=== PATIENT | female | born 1940 | race Caucasian/White ===

== ENCOUNTER 2016-08-29 11:00 | Inpatient (IN) | payer MEDICARE, OTHER ==
[~2016-08-29] VITALS: Ht 165.1 cm; Wt 79.0 kg
--- NOTE | ~2016-08-29 | ENPV ---
Vascular Lower Extremities DVT Study Procedure Demographics Patient Name IZABEL PINTO Date of Study 08/31/2016 K Patient Number [id number] Gender Female Date of 1940 Age 76 Visit Number [id number] Height Accession Number [id number] Weight Room Number G3441 BSA BMI Referring Jose Garcia MD Interpreting Chan Lima MD Physician Lefty Garcia MD Physician Nir Figueroa Physician Ordering Physician Nir Figueroa Stock Shaper Privacy Analyst Yadiel Nguyen [facility] Arin Montez Conclusions Summary No evidence of deep vein thrombosis or superficial thrombophlebitis in the right lower extremity . No evidence of deep vein thrombosis or superficial thrombophlebitis in the left lower extremity . Unable to exclude small calf thrombi in the left calf veins. Procedure Type of Study: Veins:Lower Extremities DVT Study, Venous Duplex Lower Extremity Bilateral. Indications for Study:Pain. Appropriate Use Criteria:8 Patient Status:Routine. Study Location:Inpatient Portable. Technical Quality:Good visualization. Velocities are measured in cm/s ; Diameters are measured in cm Right Lower Extremities DVT Study Measurements Right 2D and Doppler Measurements + + + + +------+------+ + !Location !Visualized!Compressibility!Thrombosis!Signal!Reflux!Reflux ! ! ! ! ! ! ! !(sec) ! + + + + +------+------+ + !GSV Thigh !Yes !Yes !None !Phasic! ! ! + + + + +------+------+ + !Common !Yes !Yes !None !Phasic! ! ! !Femoral ! ! ! ! ! ! ! + + + + +------+------+ + !Prox !Yes !Yes !None !Phasic! ! ! !Femoral ! ! ! ! ! ! ! + + + + +------+------+ + !Mid Femoral!Yes !Yes !None !Phasic! ! ! + + + + +------+------+ + !Dist !Yes !Yes !None !Phasic! ! ! !Femoral ! ! ! ! ! ! ! + + + + +------+------+ + !Popliteal !Yes !Yes !None !Phasic! ! ! + + + + +------+------+ + !PTV !Yes !Yes !None !Phasic! ! ! + + + + +------+------+ + !Peroneal !Yes !Yes !None !Phasic! ! ! + + + + +------+------+ + Left Lower Extremities DVT Study Measurements Left 2D and Doppler Measurements + + + + +------+------+ + !Location !Visualized!Compressibility!Thrombosis!Signal!Reflux!Reflux ! ! ! ! ! ! ! !(sec) ! + + + + +------+------+ + !GSV Thigh !Yes !Yes !None !Phasic! ! ! + + + + +------+------+ + !Common !Yes !Yes !None !Phasic! ! ! !Femoral ! ! ! ! ! ! ! + + + + +------+------+ + !Prox !Yes !Yes !None !Phasic! ! ! !Femoral ! ! ! ! ! ! ! + + + + +------+------+ + !Mid Femoral!Yes !Yes !None !Phasic! ! ! + + + + +------+------+ + !Dist !Yes !Yes !None !Phasic! ! ! !Femoral ! ! ! ! ! ! ! + + + + +------+------+ + !Popliteal !Yes !Yes !None !Phasic! ! ! + + + + +------+------+ + !PTV !Yes !Yes !None !Phasic! ! ! + + + + +------+------+ + !Peroneal !Yes !Yes !None !Phasic! ! ! + + + + +------+------+ + Signature dtt: TYLOR MEHTA: 08/31/16 1535 Physician Self Edit
--- NOTE | ~2016-08-29 | HP ---
[facility] 76 Y [address] ROOM: [place] [address] LOCATION: [facility] ADMIT DATE: 08/29/2016 History & Physical DISCHARGE DATE: 09/12/2016 FAMILY PHYSICIAN: Hayden Garcia MD ATTENDING PHYSICIAN: Oswaldo Olea DATE OF SERVICE: PRIMARY DIAGNOSIS: Left hip fracture status post open reduction and internal fixation of left hip. SECONDARY DIAGNOSIS: 1. Chronic congestive heart failure. 2. Diabetes mellitus type 2. 3. Chronic respiratory failure. 4. Chronic obstructive pulmonary disease. 5. Obstructive sleep apnea. 6. Pain management. 7. Dementia. 8. Hypothyroidism. 9. Depression. 10. PAF. HISTORY: This is a 76-year-old female who underwent an open reduction and internal fixation of the left hip on 08/25/2016 without complications. She had a benign postoperative course. She and her family decided to transfer her to a [facility] facility for further nursing care and physical therapy. HOSPITAL COURSE: The patient was transferred to transitional care unit on 08/29/2016. She remained hemodynamically stable and neurovascularly intact on her entire hospital course. She remained on postoperative deep venous thrombosis prophylaxis which consisted of Xarelto 20 mg, early mobilization, and pneumatic compression devices. She received daily physical therapy for gait training, transfer training, range of motion and quadriceps isometric exercises and did progress well in physical therapy. The nursing staff also provided daily dressing changes when needed and monitored her wound periodically. On her day of discharge on 09/12/2016, the incision at the hip was healing well and showed no signs of infection or necrosis. VITALS: Refer to inpatient nurse's notes. [facility] 76 Y [address] ROOM: [place] [address] LOCATION: [facility] ADMIT DATE: 08/29/2016 History & Physical DISCHARGE DATE: 09/12/2016 FAMILY PHYSICIAN: Hayden Garcia MD ATTENDING PHYSICIAN: Oswaldo Olea REVIEW OF SYSTEMS: Refer to inpatient nurse's notes. DISPOSITION: [facility]. DISCHARGE INSTRUCTIONS: Discharge diet was ADA 2000 kilocalories. Discharge activity, she is to be 50% weightbearing with left lower extremity with range of motion and quadriceps isometric exercises as instructed. She was to keep her operative extremity elevated at least 90% of the day. There were to be no dressing changes. She was to notify Dr. Olea immediately, if she experience any increased pain, fevers, chills, erythema or drainage. DISCHARGE MEDICATIONS: 1. Xarelto 20 mg 1 tablet p.o. daily for 60 days for postoperative DVT prophylaxis. 2. [place] 5/325 mg 1-2 tablets p.o. every 4 hours p.r.n. for pain. 3. Diazepam 5 mg 1/2 tablet p.o. every 6 hours p.r.n. for muscle spasms. 4. Percocet 5/325 mg 1 tablet p.o. every 3 hours p.r.n. for pain. 5. She has been instructed to continue all her other preadmission medications as instructed by her Internal Medicine doctor. EDMUNDO MO PA-C FOR MD MARVIN RONQUILLO/josie /[id number] D: [id number] T: [id number] HISTORY & PHYSICAL
--- NOTE | ~2016-08-29 | DS ---
[facility] 76 [facility] [address] ROOM: [place] [address] [address]: [facility] ADMIT DATE: 08/29/2016 Discharge Summary DISCHARGE DATE: 09/12/2016 FAMILY PHYSICIAN: Hayden Garcia MD ATTENDING PHYSICIAN: Oswaldo Olea PRIMARY DIAGNOSIS: Left hip fracture status post open reduction and internal fixation of left hip. SECONDARY DIAGNOSES: 1. Chronic congestive heart failure. 2. Diabetes mellitus type 2. 3. Chronic respiratory failure. 4. Chronic obstructive pulmonary disease. 5. Obstructive sleep apnea. 6. Pain management. 7. Dementia. 8. Hypothyroidism. 9. Depression. 10. PAF. HISTORY: This is a 76-year-old female, who underwent an open reduction and internal fixation of the left hip on 08/25/2016 without complications. She had a benign postoperative course. She and her family decided to transfer her to a half-way facility for further nursing care and physical therapy. HOSPITAL COURSE: The patient was transferred to transitional care unit on 08/29/2016. She remained hemodynamically stable and neurovascularly intact on her entire hospital course. She remained on postoperative deep venous thrombosis prophylaxis which consisted of Xarelto 20 mg, early mobilization, and pneumatic compression devices. She received daily physical therapy for gait training, transfer training, range of motion and quadriceps isometric exercises and did progress well in physical therapy. The nursing staff also provided daily dressing changes when needed and monitored her wound periodically. On her day of discharge on 09/12/2016, the incision at the hip was healing well and showed no signs of infection or skin necrosis. DISPOSITION: [facility]. DISCHARGE INSTRUCTIONS: Discharge diet was ADA 2000 kilocalories. Discharge activity, she is to be 50% weightbearing with left lower extremity with range of motion and quadriceps isometric exercises as instructed. She was to keep her operative extremity elevated at least 90% of the day. There were to be no dressing changes. She was to notify Dr. Olea immediately if she experience PATIENT'S NAME: IZABEL PINTO [facility] AGE: 76 Y [address] ROOM: [place] [address] LOCATION: [facility] ADMIT DATE: 08/29/2016 Discharge Summary DISCHARGE DATE: 09/12/2016 FAMILY PHYSICIAN: Hayden Garcia MD ATTENDING PHYSICIAN: Oswaldo Olea any increased pain, fevers, chills, erythema or drainage. DISCHARGE MEDICATIONS: 1. Xarelto 20 mg 1 tablet p.o. for 60 days for postoperative DVT prophylaxis. 2. [place] 5/325 mg 1-2 tablets p.o. every 4 hours p.r.n. for pain. 3. Diazepam 5 mg 1/2 tablet p.o. every 6 hours p.r.n. for muscle spasms. 4. Percocet 5/325 mg 1 tablet p.o. every 3 hours p.r.n. for pain. 5. She has been instructed to continue all her other preadmission medications as instructed by her Internal Medicine doctor. FOLLOWUP: Followup appointment is to be with Dr. Olea's office 2 weeks after discharge from [facility] for her initial postoperative evaluation. EDMUNDO MO PA-C FOR MD DIRK RONQUILLOW/modl /[id number] d: 09/20/16 0503 t: 09/20/16 0911, DISCHARGE SUMMARY
[~2016-08-29 11:00] MED LIST: ALDACTONE25 MG PO; ASPIRIN LO-DOSE81 MG PO; BUPROPION HCL150 M1 PO; COLACE100 MG PO; DUONEB INH; GLUCOPHAGE500 MG PO; LEVOTHROID (S150 MCG PO; MAG-OX-400(241400 MG PO; NEURONTIN600 MG PO; POTASSIUM CHLO10 MEQ PO; RYTHMOL150 MG PO; TYLENOL325 MG PO; ZOLOFT100 MG PO
--- NOTE | 2016-08-29 16:54 | NUR ---
D: Nursing Admission Summary I: Nursing interventions provided to support the patient's individual plan of care R: MOBILITY-- 2 assist pivot transfer. 50% weight bearing to left leg. NUTRITION-- Diabetic diet. SKIN/INCISIONS/WOUNDS-- Mepilex x2 to left hip SELF CARES-- Needs assistance with ADL's BOWEL/BLADDER-- Incontinent at times. Has been continent of bowel and bladder today RESPIRATORY-- Oxygen at 2 liters. Oxygen to keep sats 90% or greater PAIN-- Has PRN medication. [place] given at 1500. PSYCHOSOCIAL-- Daughter Ernestine is POA COGNITION-- Alert and oriented to self. Gets confused easily and is very forgetful. Daughter states she has been confused at home. NEED FOR BED/MOVEMENT ALARMS. Needs alarms at all times. Do not leave patient alone on commode. High fall risk DISMISSAL PLANS: To be determined Other: [facility]att PONCE&HS P: Current plan of care reviewed and updated Summer Gan RN 08/29/16
--- NOTE | 2016-08-30 02:26 | NUR ---
Significant Event: Alert & oriented to person,place,date. But will say some off the wall things. VSS. I found o2 off @ 1945 & she was 90% on room air. I rechecked later & she was asleep in bed. o2 was on a 1 L & sao2 was 94%. She is a 2 heavy assist with gb/walker and is to only bear 50% wt on lt side. Lt hip & femur dressing c/d/i. She wears YANIV hose. ICE to lt hip. ACHS sliding scale /blood sugars. Follow up:
--- NOTE | 2016-08-30 13:36 | NUR ---
TCU-Social Assessment & History Marital status: and Children/Grandchildren: 2 daughters: Ernestine Lara is from [place], [place] and has four boys per patient. Caty Guajardo resides in [place], [place]. DPOA: On file Name of DPOA: Ernestine Lara Patient is a full code Admitted from: Acute Care Admission date to TCU: 08/29/16 Reason for admission: Continued OT and PT with O2 as needed following a L) hip fx. Patient/family received resident rights upon admission: Yes, on acute Prior level of functioning: Was living independently and had housekeeping per patient every other week. Prior living situation: Patient lived alone in an apartment under a motel in [place], [place]. Is a ground level apartment and has three steps to the entrance per daughter. Financial resources: Medicare, Supplement. Pratik Sinha states that patient has around $13,000 in savings and will assist in paying patient's bills. Monthly rent for patient's apartment is $575 including utilities. SW discussed with daughter Medicare and Medicaid criteria. Resources used/available: Housekeeping every other week. Patient has a FWW, home O2, and a cane but states that she does not use them. Patient has refused [employer] in the past per Ernestine. Family support available: Yes Understands nature of health condition: Confused at times Recognizes impact of health condition on lifestyle: Patient states she would like to live in [place] when d/c from the hospital. Occupation/Vocation/Education: Previously worked in [employer] before working for [employer] per patient. Behavior/Emotional needs: Pleasant and cooperative Legal concerns: N/A Spiritual: [employer] in [place], [place] Discharge goal: Pratik Sinha wants patient to d/c to a SNF in [place], [place]. Patient discussed wanting to stay in [place] as well. SW encouraged pratik Sinha to tour all four SNF in [place] and give us her top two choices. Listing of SNF left at bedside for daughter. Activities: Patient will be encouraged to participate in "ala carte" activities offered during her short stay on TCU. A current calendar of events is posted at bedside. Patient states that she wants to move to [place] so she can enjoy shopping and going out to eat.
--- NOTE | 2016-08-30 16:58 | NUR ---
Significant Event: 2 ASSIST TRANSFER USING GAIT BELT AND WALKER. 50% WEIGHT BEARING TO LEFT LOWER EXTREMITY. 1 NORCO GIVEN X1 THIS SHIFT. INCONTINENT OF LARGE LOOSE STOOL. 1100 ACCUCHECK 223 REQUIRING 2 UNITS SSI. PLEASANT AND COOPERATIVE WITH CARES. Follow up:
--- NOTE | 2016-08-31 02:34 | NUR ---
Significant Event: oriented to person, place, time. However she is still somewhat confused. She searches for words. She is 2 assist/gb/walker He is 50% wt bearing. o2 is off. Used incentive spirometer to 1000. VSS. ACHS blood sugars. SHe had a loose stool on days so, miralax held. Wears YANIV hose. She is on a high/low bed. She needs help with order meals. Denies pain. 2- lt hip dressing have mepilex on them & are c/d/i. Follow up:
--- NOTE | 2016-08-31 17:10 | NUR ---
Significant Event: 2 ASSIST WITH GAIT BELT AND WALKER TO PIVOT TRANSFER. ALARMS AT ALL TIMES. INCONTINENT OF LARGE BOWEL MOVEMENT. ACCUCHECK AT 0700 163 AND AT 1100 241. CONTINUES TO BE CONFUSED AND SLOW TO RESPOND. PLEASANT AND COOPERATIVE WITH CARES. Follow up:
--- NOTE | 2016-09-01 02:20 | NUR ---
Significant Event:Goes by Dot. Confused. Word searching at times. 2 assist HEAVY pivot.ACHS accuchecks, no sliding scale required at HS. VSS on 1L oxygen per Nasal Cannula. Mepilex to L) hip intact. 1 [place] @ 2153 for pain; relief noted. Loose stools X2 this shift. Turn and check for incontinence Q2h. Call light within rewch. Follow up:
--- NOTE | 2016-09-01 17:15 | NUR ---
Significant Event:ALERT AND COOPERATIVE, CONFUSED ON PERSON, AND PLACE, FOLLOWS COMMANDS, USES CALL LIGHT APPROPRIATELY, 2 ASSIST TRANSFER TO BEDSIDE COMMODE, PIVOT TRANSFER, PT/OT SERVICES. BLOOD SUGARS AC/HS WITH SLIDING SCALE, YANIV HOSE ON, MEPLILEX DRESSIGN TO L)HIP X 2, OXYGEN 1 LITER AT ALL TIMES, FOOT PUMPS ON AND ALARMS ON AT ALL TIMES. Follow up:
--- NOTE | 2016-09-02 04:09 | NUR ---
Significant Event: Goes by Dot. ALert, confused at times. Follows commands well. uses call light. 2 Assit, pivot transfer. Gait belt and walker. Blood sugars achs with sliding scale. HS blood sugar 188. Took O2 off everytime I put it back on, should be 1L at all times. alarms on at all times. Follow up:
--- NOTE | 2016-09-02 11:11 | NUR ---
call returned to daughter Caty in [place] [phone]. Caty requested update about her mom. Informed Caty that her mom would be going to a SNF [place] for continued OT/PT/ST under medicare. Her sister Ernestine and patient request [place] and Caty in agreement with the plan. Referrals made to [facility] and [facility] today per MAHESH Sinha's request. Information faxed to these two SNF's. Ernestine updated as well. Ernestine is the primary contact so encouraged Caty to get updates from Ernestine in [place].
--- NOTE | 2016-09-02 16:56 | NUR ---
Significant Event: ALERT, CONFUSED TO PLACE/TIME, TALKS ABOUT TALKING TO PEOPLE THAT ARE , L)HIP MEPILEX DRY AND INTACT, SHOWER THIS AM, BLOOD SUGARS AC/HS, NORCO 1 TAB GIVEN FOR PAIN LAST AT 1400. 1 LITER OXYGEN DURING THE DAY, WEANED OFF TO ROOM AIR AT 1400 SATS 93%. TRYS TO GET OUT OF CHAIR WITHOUT USIGN CALL LIGHT FOR HELP, MONITOR CLOSELY. DO NOT LEAVE ON COMMODE IN ROOM BY HERSELF. Follow up:
--- NOTE | 2016-09-03 02:04 | NUR ---
Significant Event: Patient is alert and oriented to self only. Follows commands and is pleasant and cooperative with cares. Transfers by pivot with two assist with gait belt and walker. Accucheck AC/HS with sliding scale insulin. Alarms on at all times. Dressing to left hip dry and intact. Follow up:
--- NOTE | 2016-09-03 15:38 | NUR ---
Significant Event: PIVOT TRANSFERS WITH ASSIST OF 2 USING GAIT BELT AND WALKER. CAN BE IMPULSIVE AT TIMES ALARMS AT ALL TIMES. LEFT HIP UPPER DRESSING REINFORCED UPPER EDGE WAS LOOSE. 1000MG TYLENOL GIVEN X1 THIS SHIFT FOR LEFT HIP PAIN. DAUGHTER BROUGHT NEW CLOTHES. 2 UNITS SSI GIVEN AT NOON FOR AT 234 BLOOD SUGAR. PLEASANT AND COOPERATIVE WITH CARES. Follow up:
--- NOTE | 2016-09-04 03:46 | NUR ---
Significant Event: Pt oriented to self. Mepilex to left hip dry and intact. CSM WNL. 1 norco given with HS meds. Did not need insulin coverage. Rested well all shift, no attempts to get up by self. Follow up:
--- NOTE | 2016-09-04 17:10 | NUR ---
Significant Event: PIVOT TRANSFERS WITH 2 ASSIST USING GAIT BELT AND WALKER. PRN TYLENOL GIVEN X1 THIS SHIFT. BOTH DAUGHTERS HERE THIS MORNING AND WERE ARGUING IN PATIENTS ROOM ASKED THE DAUGHTERS TO GO ELSEWHERE POSSIBLY LEAVE IF THEY WERE GOING TO YELL AT EACH OTHER. DAUGHTER ULISSES AT BEDSIDE THROUGHOUT THE DAY AND PATIENT'S BROTHER BUD AND AT BEDSIDE ALSO. POA REFUSES TO COMMUNICATE WITH OTHER FAMILY. 1100 ACCUCHECK WAS 219 WITH 2 UNITS SSI GIVEN ORDERED. PLEASANT AND COOPERATIVE WITH CARES. Follow up:
--- NOTE | 2016-09-05 03:40 | NUR ---
Significant Event: Patient disoriented to time. Transferred with 2 assist, pivot. Mepilex x2 to left hip clean, dry and intact. CSM WNL. Vital signs stable, on room air. 1 tab norco given with HS meds. No coverage needed for accucheck. Pleasant/cooperative with cares Follow up: alarms on
--- NOTE | 2016-09-05 14:02 | NUR ---
Call placed to [facility] and spoke with Rafaela HOPPER who is reviewing information faxed to her. They had 2 people over the weekend, so should have a bed ready by of this week. Rafaela will have their nursing personnel review the records and let me know when they can come and assess patient.
--- NOTE | 2016-09-05 14:25 | NUR ---
Significant Event: Patient alert but confused at times. Needs alarms. 2 assist. 50% weight bearing until October 23. Mepilex x2 to left hip and intact. Taking [place] for pain. Accuchecks with s/s insulin. Follow up:
--- NOTE | 2016-09-06 03:32 | NUR ---
Significant Event: Patient alert and oriented x3 but intermittent bouts of confusion with reorientation needed. Mepilex x2 clean, dry and intact to left hip. CSM WNL. Vital signs stable, on room air. One norco given with hs meds. Slept well throughout the night. Transferred with 2 assist and walker. No coverage needed for accucheck. Pleasant and cooperative with cares Follow up: alarms on
--- NOTE | 2016-09-06 14:09 | NUR ---
Significant Event: ALERT- ORIENT TO PERSON AND PLACE BUT BELIEVES CAR IS OUTSIDE AND THOUGHT SHE DROVE HERSELF TO HOSPITAL- REORIENTATES EASILY, PT/OT/ST SERVICES, PLEASANT AND COOPERATIVE, ALARMS ON AT ALL TIMES. BEDSIDE COMMODE 2 ASSIST PIVOT TRANSFER- 50% WT BEARING TO L)LEG, [place] REMOVED TODAY- BENZOIN AND STERISTRIPS APPLIED TO L)INCISIONS. BLOOD SUGARS AC/HS, 91% ROOM AIR, DENIES PAIN. [facility] HERE TO ASSESS PT TODAY. Follow up:
--- NOTE | 2016-09-07 03:13 | NUR ---
Significant Event: Patient has moments of confusion. Was able to tell me where she was and the date. [place] given with hs meds. PRN colace also given. Vitals stable on room air. Steristrips intact to left hip, incision edges approximated. CSM WNL. Continent. No coverage needed for accucheck. Kicks off foot pumps after attempts to place back on so left off. Bed alarm on Follow up: no bm since the
--- NOTE | 2016-09-07 10:04 | NUR ---
[facility] have [facility] bed available Monday (09/12) at 1100. Patient and daughter in agreement to plan.
--- NOTE | 2016-09-07 16:50 | NUR ---
Significant Event: Follow up: up to commode, up to chair, with two mod assist, gait belt and walker, patient leans backwards and needs cuing to lean forward. Needs reminders to do 50% wt bearing to left leg. Patient in impulsive and sets off bed and chair alarms several times today. At aprox 1630 patient is setting off chair alarm, ready to go to kitchen to peel potatoes. Given norco last at 1420.
--- NOTE | 2016-09-07 23:18 | NUR ---
Significant Event:Alert to self. Confused to surroundings at times. 2 assist pivot for transfers. Left hip well approximated. Steri strips loose and coming off. 1L/O2 for low Saturation at HS.ACHS accuchecks; no insulin required this shift. Impulsive. Alarms at all times. 1 [place] @ 2100 for discomfort. Call light within reach. Mats down at bedside. Bed in low position. Follow up:
--- NOTE | 2016-09-08 20:01 | NUR ---
Significant Event:ALERT ORIENTATED X 3, PERIODS OF CONFUSION, IMPULSIVE TRYS TO GET UP AND WALK- FORGETS HIP IS BROKEN, FORGETS TO USE CALL LIGHT, 2 ASSIST PIVOT TRANSFER WITH WALKER/GB, 50% WT BEARING TO L)LOWER EXTREMITY, YANIV HOSE ON, EATS WELL, BLOOD SUGARS AC/HS-ORAL GLUCOPHAGE AND SLIDING SCALE, NORCO GIVEN FOR PAIN, RESTLESS IN AFTN WANTING TO GO GET HER CAR, JUST WANTING TO GO. PLAN TO GO TO [facility] ON MONDAY. Follow up:
--- NOTE | 2016-09-09 04:11 | NUR ---
Significant Event: Forgetful of own limitations. Attempts to get out of bed w/out using call light. High/low bed w/pads used. No pain meds given this shift no verbal or nonverbal c/o discomfort noted. L) hip has steri-strips in place. Two asssit pivot transfer w/gait belt and walker. Patient likes to be called "Dot." Patient is easily redirected. Follow up:
--- NOTE | 2016-09-10 03:33 | NUR ---
Significant Event: Pleasantly confused. Redirects easily. Two assist transfer pivot. Patient makes needs known. High/low bed and fall precautions in place. Vital signs are stable. No c/o discomfort voiced. Attempts to get up on own. Requests to go to recliner from bed. Chair alarm activated and is working properly. Patient is asleep in recliner. Follow up:
--- NOTE | 2016-09-10 15:43 | NUR ---
Significant Event: Patient is alert. Can be oriented at times and also confused at times. Room air. No IV access. Hi-Lo Bed. Bed and chair alarms at all times. Up to commode with 2 assist, 50% weight bearing to left leg for 2 months. Uses call light appropriately. [place] given X 1 at 1408. ACHS accuchecks - 134 and 197 with no correction needed. Pleasant and cooperative with cares. Follow up:
--- NOTE | 2016-09-11 06:05 | NUR ---
Significant Event: PATIENT IS INTERMITTENTLY CONFUSED BUT PLEASANT. SLEPT WELL LAST NIGHT. HAS LOW BED. DOES NOT CALL APPROPRIATELY. ALARMS IN PLACE. MOT[facility] ON MONDAY. Follow up:
--- NOTE | 2016-09-11 16:17 | NUR ---
Significant Event: Pt is alert, oriented to self. Cooperative with cares. Transfers to commode with 2 assist, gait belt, walker. C/o leg pain this afternoon gave prn pain medication with relief noted. Last BM 09/08; will offer MOM. Accuchecks 123, 151. Follow up:
--- NOTE | 2016-09-12 03:37 | NUR ---
Significant Event: Pt alert to self, sometimes confused. cooperative with cares. 2 assist, gait belt walker. C/O 02/16 leg pain, 2 norco given at 0230. alarms [address]. Mother [facility]ol 09/12/16 Follow up:
--- NOTE | 2016-09-12 04:03 | NUR ---
D: Nursing Discharge Summary From 08/29/16 to 09/12/16 I: Nursing interventions provided to support the patient's individual plan of care R: MOBILITY-- 2A pivot. Gait belt, walker NUTRITION-- Diabetic diet SKIN/INCISIONS/WOUNDS-- left hip surgical incision BOWEL/BLADDER-- Sometimes incontienent of bowel and bladder RESPIRATORY-- 1L oxygen for o2 stats below 90 PAIN-- Speaks up when in pain. Analgesics COGNITION-- sometimes confused. SPECIAL NEEDS-- Low bed, bed alarms. BLEEDING-- none SENSORY IMPAIRMENTS/DENTAL NEEDS: TEACHING NEEDS-- reinforce use of call light and 50% weight bering INFECTION CONCERNS: RISK FOR ELOPEMENT: none NEED FOR BED/MOVEMENT ALARM: Yes, confused at times, forgets to call DISMISSAL PLANS: [facility] Other: P: Current plan of care reviewed and updated 09/12/16 chaitanya BURRIS
--- NOTE | 2016-09-12 16:53 | NUR ---
Patient discharged this am at aprox 1000 to [facility]. Patient very excited to go. Seems to be clear in her mind this am. Report given by Lázaro Bueno RN. discharged to long term personel via van.
== END 2016-09-12 10:21 | DRG 560 ==
LOC: GSNF 11:00
PROVIDERS: ADMIT Orthopaedic Surgery
PROC: F07Z9ZZ Gait Training/Functional Ambulation Treatment (ICD-10-PCS; principal; 2016-08-29)
PROC: F08Z4ZZ Home Management Treatment (ICD-10-PCS; principal; 2016-08-29)
PROC: F06Z6ZZ Communicative/Cognitive Integration Skills Treatment (ICD-10-PCS; 2016-09-02)
DX: Z47.1 Aftercare following joint replacement surgery (principal); I50.32 Chronic diastolic (congestive) heart failure; J96.10 Chronic respiratory failure, unspecified whether with hypoxia or hypercapnia; J44.9 Chronic obstructive pulmonary disease, unspecified; F03.90 Unspecified dementia, unspecified severity, without behavioral disturbance, psychotic disturbance, mood disturbance, and anxiety; S72.002D Fracture of unspecified part of neck of left femur, subsequent encounter for closed fracture with routine healing; I48.0 Paroxysmal atrial fibrillation; G47.33 Obstructive sleep apnea (adult) (pediatric); E03.9 Hypothyroidism, unspecified; F32.9 Major depressive disorder, single episode, unspecified; E11.9 Type 2 diabetes mellitus without complications; Z79.01 Long term (current) use of anticoagulants; W19.XXXD Unspecified fall, subsequent encounter

== ENCOUNTER 2016-11-13 20:57 | Emergency (ER) | payer MEDICARE, OTHER ==
--- NOTE | ~2016-11-13 | ER ---
PATIENT'S NAME: IZABEL PINTO [facility] AGE: 76 Y [address] ROOM: [place] [address] LOCATION: [facility] ADMIT DATE: 11/13/2016 ER/Outpatient Report DISCHARGE DATE: 11/13/2016 FAMILY PHYSICIAN: Richard Garcia MD ATTENDING PHYSICIAN: Makenna Pritchett HISTORY OF PRESENT ILLNESS: This is a 76-year-old female who presents today with a fall off the toilet and then some left hip pain. She reports that she had surgery 2 months ago. She had ORIF for a left hip fracture. She states that she was able to ambulate when EMS got there. She reported her pain was a 6/10 and it is now 0/10 after they gave 50 mcg of fentanyl. The patient is on Xarelto as well, so she has extensive bruising and she says that it is mildly painful, but otherwise she feels okay. She denies any numbness, tingling or any other complaints of the leg besides pain which has now gone. PAST MEDICAL HISTORY: Includes dementia, hypothyroidism, atrial fibrillation on anticoagulation, CHF, flu-clppazn-wrvdlqbsq diabetes, COPD, CVA, asthma and osteoarthritis. PAST SURGICAL HISTORY: Left hip fracture ORIF. SOCIAL HISTORY: She does not smoke, drink or use any drugs. MEDICATIONS: Please see med list. ALLERGIES: PLEASE SEE MED LIST. REVIEW OF SYSTEMS: Reviewed by me and negative with the exception of those discussed in the HPI. PHYSICAL EXAMINATION: GENERAL: The patient is 5 feet and 5 inches. She weighs 72.9 kilos, blood pressure 131/64, heart rate 85, respiratory rate 16, temperature 97.9, and saturations are 96%. GENERAL: The patient is in no acute distress. She is alert and interactive. She is able to speak to me appropriately. She is able to give some history as well. EXTREMITIES: On the lower extremities, there is no shortening or rotation. She has no pelvic tenderness and she has no hip tenderness either. There is a pretty extensive swelling and bruising of her left lateral hip area and leg PATIENT'S NAME: IZABEL PINTO [facility] AGE: 76 Y [address] ROOM: [place] [address] LOCATION: [facility] ADMIT DATE: 11/13/2016 ER/Outpatient Report DISCHARGE DATE: 11/13/2016 FAMILY PHYSICIAN: Richard Garcia MD ATTENDING PHYSICIAN: Makenna Pritchett down the lateral thigh, but the skin is warm and dry. It is soft compartments. She does not have any signs of compartment syndrome. She has full range of motion at that hip and can flex it and extend it without any real difficulty. NEURO: Otherwise, she has good strength on bilateral lower extremities. HEART: Irregular at this time. LUNGS: Her lung sounds are clear. ABDOMEN: Soft, nontender, nondistended. She is obese. EMERGENCY ROOM COURSE: An x-ray was done. On my read, her hardware looks like it is in place and I do not see any new fractures. We got the patient up to walk and she was able to ambulate and bear weight. It is not hip fracture. This is mostly just hematoma as she is on Xarelto. It was sort of compressed with an Glenn wrap and we will have her follow up with her primary care doctor as needed. She understands the reasons to come back to the ER sooner. IMPRESSION: Fall, left hip hematoma. MD ANURADHA SANDERSONW/josie /[id number] d: 11/14/160 t: 11/14/16 1811, OUTPATIENT REPORT
[~2016-11-13 20:57] MED LIST changes: -ARICEPT 5 MG5 MG PO; -ATIVAN 0.5MG0.5 MG PO; -DULCOLAX10 MG R; -FEOSOL325 MG PO; -GLUCERNA237 ML PO; -LASIX20 MG PO; -LIPITOR80 MG PO; -LOPRESSOR25 MG PO; -MILK OF MA400 MG/5 M PO; -PRINIVIL OR ZES10 MG PO; -PRINIVIL5 MG PO; -PROTONIX40 MG PO; -TRIAMCINOLONE454 GM TOP; -XARELTO20 MG PO
== END 2016-11-13 22:10 | disposition disaster alternative care site (69) ==
LOC: GACC 20:57
DX: S70.02XA Contusion of left hip, initial encounter (principal); E03.9 Hypothyroidism, unspecified; E11.9 Type 2 diabetes mellitus without complications; I48.91 Unspecified atrial fibrillation; I50.9 Heart failure, unspecified; J44.9 Chronic obstructive pulmonary disease, unspecified; M19.90 Unspecified osteoarthritis, unspecified site; Z88.8 Allergy status to other drugs, medicaments and biological substances; W18.11XA Fall from or off toilet without subsequent striking against object, initial encounter

== ENCOUNTER → 2016-11-13 | Outpatient (CLI) | payer MEDICARE, OTHER ==
[~2016-11-13] MED LIST changes: +ARICEPT 5 MG5 MG PO; +ATIVAN 0.5MG0.5 MG PO; +DULCOLAX10 MG R; +FEOSOL325 MG PO; +GLUCERNA237 ML PO; +LASIX20 MG PO; +LIPITOR80 MG PO; +LOPRESSOR25 MG PO; +MILK OF MA400 MG/5 M PO; +PRINIVIL OR ZES10 MG PO; +PRINIVIL5 MG PO; +PROTONIX40 MG PO; +TRIAMCINOLONE454 GM TOP; +XARELTO20 MG PO
== END | disposition disaster alternative care site (69) ==
LOC: GAMB 20:33
DX: S79.919A Unspecified injury of unspecified hip, initial encounter (principal); M25.552 Pain in left hip; M25.551 Pain in right hip; Z88.8 Allergy status to other drugs, medicaments and biological substances
CPT/HCPCS: A0425; A0427; J3010

== ENCOUNTER 2016-12-05 13:50 | Inpatient (IN) | payer MEDICARE, OTHER ==
[~2016-12-05] VITALS: Ht 165.1 cm; Wt 71.0 kg
--- NOTE | ~2016-12-05 | DS ---
PATIENT'S NAME: IZABEL PINTO [facility] AGE: 76 Y [address] ROOM: [address] [address] LOCATION: [facility]PCU ADMIT DATE: 12/05/2016 Discharge Summary DISCHARGE DATE: 12/08/2016 FAMILY PHYSICIAN: Tyrell Loaiza MD ATTENDING PHYSICIAN: Leigh Wei FINAL DIAGNOSES: 1. Acute blood loss anemia. 2. Upper gastrointestinal bleed secondary to duodenitis. 3. Paroxysmal atrial fibrillation. 4. Chronic diastolic congestive heart failure. 5. Essential hypertension. 6. Diabetes mellitus, type 2, controlled with medication. 7. Dementia. 8. Hypothyroidism. 9. Moderate aortic stenosis. 10. Probable transfusion-related acute lung injury blood transfusion reaction. PROCEDURES: She had an EGD with Dr. Couch on December 07. REASON FOR ADMISSION: The patient presented to the Emergency Room, having several falls in the last month. She was seen, and was found to have a severe anemia of 5.8. She did have a history of hematemesis and dark stools. At that time, it was felt that she needed to be admitted. LABORATORY DATA: On admission, her sodium was 141 and discharge was 143, potassium on admit was 3.8 and discharge was 4, chloride on admit was 107 and discharge was 110, BUN on admission was 21 and discharge was 19, creatinine on admission was 0.9 and discharge was 0.9, and magnesium on admit was 1.6 and most prior to discharge was 1.9. Cardiac enzymes on admission were normal. Hemoglobin A1c was less than 4.3. On admission, white blood cell count was 9, hemoglobin was 5.8, hematocrit was 18.9, and platelet count was 281. PTT of 24, protime of 10.9, and INR of 1.04. Hemoglobin was 5.8, then increased to 9.3, and then it stabilized and then was 8.4 on the morning of December 06, but then did stabilize in the 9 range. Procalcitonin on admission was 0.99. Urinalysis on admission with 0 to 2 whites and 0 to 2 reds. RADIOLOGY REPORTS: Chest x-ray on admission showed stable cardiomegaly. CT scan of the brain without contrast was stable. Chest x-ray done on the after transfusion reaction showed mild cardiomegaly and no pleural fluid. HOSPITAL COURSE: The patient was admitted to PCU. She was started on IV Protonix drip. She was transfused 2 units of packed red blood cells. She was seen in evaluation by Dr. Richmond from the Gastroenterology Service, and felt PATIENT'S NAME: IZABEL PINTO [facility] AGE: 76 Y [address] ROOM: [place] [address] LOCATION: [facility]PCU ADMIT DATE: 12/05/2016 Discharge Summary DISCHARGE DATE: 12/08/2016 FAMILY PHYSICIAN: Tyrell Loaiza MD ATTENDING PHYSICIAN: Leigh Wei that she would need to have an EGD on Monday. She had taken her Xarelto on the day of admission. It was felt that she should be off her Xarelto for at least a day prior to proceeding. The night of the , she did have an episode of being short of breath. After receiving the transfusion, it was thought it was secondary to volume overload, and she responded to 40 mg of IV Lasix. On the , she complained of being lightheaded and dizzy, and orthostatic blood pressures were positive. The decision was made to go ahead and give her a third unit of packed red blood cells. She became acutely short of breath, and developed wheezes with increased oxygen requirements. At that time, there was concern that she was having a blood transfusion reaction. She was given IV Solu-Medrol, and was given nebulized epinephrine. Her symptoms did improve. We did initiate the blood transfusion reaction protocol. It was felt that she probably did have a TRALI blood transfusion. She did go to have her EGD with Dr. Couch on the . At that time, he did find duodenitis, but no active bleeding. The decision was made that we could transition her to oral Protonix. The patient was feeling better on the morning of the . She was ambulating in the palm with her walker. Her hemoglobin was stable, and it was felt that she was stable for discharge, and could be discharged back to [facility]. DISCHARGE INSTRUCTIONS: To follow up with Richard Garcia MD on December 12 at 10:15 a.m. I did speak with him. Resume outpatient PT and OT that she did receive at [facility]. DISCHARGE MEDICATIONS: 1. Synthroid 175 mcg daily. 2. Glucophage 500 mg twice daily. 3. Lopressor 25 mg daily. 4. Zoloft 150 mg daily. 5. Aldactone 25 mg daily. 6. Tylenol 650 mg three times daily. 7. Aspirin 81 mg daily. 8. Xarelto 20 mg daily, which could resume on December 10. 9. Triamcinolone cream three times daily to her elbows and buttocks. 10. Dulcolax suppository 10 mg daily as needed for constipation. 11. Milk of magnesia 30 mL daily as needed for constipation. 12. Tylenol 650 mg every four hours as needed. 13. Protonix 40 mg twice daily. 14. Ferrous sulfate 325 mg daily. OVERALL PROGNOSIS: At discharge was good. PATIENT'S NAME: IZABEL PINTO [facility] AGE: 76 Y [address] ROOM: [place] [address] [facility] ADMIT DATE: 12/05/2016 Discharge Summary DISCHARGE DATE: 12/08/2016 FAMILY PHYSICIAN: Tyrell Loaiza MD ATTENDING PHYSICIAN: Leigh Wei MD LAW/modl /[id number] CC: Richard Garcia MD d: 12/09/16 0437 t: 12/16/16 1834, DISCHARGE SUMMARY
--- NOTE | ~2016-12-05 | ER ---
PATIENT'S NAME: IZABEL PINTO [facility] AGE: 76 Y [address] ROOM: [address] [address] LOCATION: GPCU ADMIT DATE: 12/05/2016 ER/Outpatient Report DISCHARGE DATE: FAMILY PHYSICIAN: Tyrell Loaiza MD ATTENDING PHYSICIAN: Sanjuana ABRAHAM Time of Arrival: 1350 hours. Time of Evaluation: 1359 hours. CHIEF COMPLAINT: Nausea, vomiting, and weakness. HISTORY OF PRESENT ILLNESS: The patient is a 76-year-old female, who presents to the emergency department today with a chief complaint of nausea, vomiting, and weakness. She reports she has not been feeling well for the past 2 days. The patient lives at [facility] currently. The patient apparently fell multiple times over the past couple weeks. No fall since approximately 2 to 3 days. The patient does have a history of dementia. She is accompanied by her daughter. Denies any fevers or chills. She has had some nausea and vomiting. She had one episode of blood in her vomit. She does report some darker stools. Denies any urinary symptoms. No diarrhea. No headache. No chest pain. No shortness of breath. No cough. PAST MEDICAL HISTORY: 1. Congestive heart failure. 2. Diabetes mellitus, type 2. 3. Chronic respiratory failure. 4. Chronic obstructive pulmonary disease. 5. Obstructive sleep apnea. 6. Pain management. 7. Dementia. 8. Hypothyroidism. 9. Depression. 10. Paroxysmal atrial fibrillation. PAST SURGICAL HISTORY: 1. Goiter removal. 2. Cholecystectomy. 3. Knee surgery. 4. Laparoscopic cholecystectomy. SOCIAL HISTORY: The patient denies any tobacco, alcohol, or illicit drug use. Currently lives at [facility]. PATIENT'S NAME: IZABEL PINTO [facility] AGE: 76 Y [address] ROOM: [address] [address] LOCATION: GPCU ADMIT DATE: 12/05/2016 ER/Outpatient Report DISCHARGE DATE: FAMILY PHYSICIAN: Tyrell Loaiza MD ATTENDING PHYSICIAN: Sanjuana ABRAHAM FAMILY HISTORY: No premature coronary artery disease noted. ALLERGIES: NO KNOWN DRUG ALLERGIES. MEDICATIONS: Please see list. PRIMARY CARE DOCTOR: Hayden Garcia MD REVIEW OF SYSTEMS: All systems are reviewed by myself are negative with the exception of those discussed in the HPI and past medical history. PHYSICAL EXAMINATION: VITAL SIGNS: Blood pressure 112/53, pulse 92, respiratory rate 20, temperature 97.1, and oxygen saturation 97% on room air. GENERAL: The patient is a 76-year-old female, who appears stated age, pale. HEENT: Head; normocephalic. The patient does have evidence of trauma with old ecchymoses noted on bilateral lower eyes periorbitally. Pupils are equal, round, and reactive to light. Extraocular motions are intact. Nares are patent bilaterally. TMs are clear. No hemotympanum. NECK: Supple. There is no midline tenderness to palpation. No step-offs or deformities. CARDIOVASCULAR: Regular rate and rhythm. No murmurs, rubs, or gallops. LUNGS: Clear to auscultation bilaterally. No wheezes, rales, or rhonchi. ABDOMEN: Soft, nontender, and nondistended. No rebound, rigidity, or guarding. MUSCULOSKELETAL: The patient moves all 4 extremities. NEUROLOGIC: GCS of 15. Alert, oriented to person, not place or time. SKIN: Warm and dry. LABORATORY DATA AND IMAGING STUDIES: Labs and x-rays are obtained. EKG is obtained, is interpreted by myself at 1442 hours, shows sinus rhythm with a rate of 85, normal axis, and normal interval. No ST elevation. There is ST depression in II, V3, V4, V5, and V6. This does appear stable from previous EKGs on 08/27/2016 and 08/26/2016. Lactate is 3.9. CBC is unremarkable except for a hemoglobin of 5.8, and hematocrit of 18.9. Coags are normal. CMP is unremarkable except for glucose of 224. LFTs are normal. Cardiac enzymes are normal. Procalcitonin is 0.11. Urinalysis is negative. PATIENT'S NAME: IZABEL PINTO [facility] AGE: 76 Y [address] ROOM: [id number] [place], [place] [address] LOCATION: GPCU ADMIT DATE: 12/05/2016 ER/Outpatient Report DISCHARGE DATE: FAMILY PHYSICIAN: Tyrell Loaiza MD ATTENDING PHYSICIAN: Sanjuana ABRAHAM IMPRESSION: 1. Acute blood loss anemia. Suspect upper gastrointestinal bleed. 2. Lactic acidosis. 3. Abnormal EKG. 4. Poorly controlled diabetes mellitus. 5. Critical care time of 32 minutes. 6. Initial visit. EMERGENCY DEPARTMENT COURSE: The patient was brought back to the examination room. Seen and evaluated by myself. IV is established. Laboratory analysis and imaging are obtained as described above. The patient is given a liter of normal saline. The patient's laboratory analysis are obtained as described above. The patient's old records are reviewed by myself. I have had a discussion with the patient as well as the patient's daughter. I have reviewed the old EKGs. The patient's hemoglobin does come back at 5.8. The patient is typed and crossed for 4 units. She was transfused for 2 units down here in the emergency department. I have contacted the hospitalist, Dr. Abraham, who has seen and evaluated the patient down here in the emergency department. We have discussed the case. We will start the patient on Protonix. He has discussed the case with Dr. Richmond with Gastroenterology. The patient has not had any active bleeding down here in the emergency department. I have discussed the results of laboratory analysis with the patient and her daughter. I have recommended admission to the hospital for further evaluation, treatment, and management. She does require multiple re-evaluations by myself. Her blood pressure has remained stable and heart rate has been in the 80s. The patient did require a cumulative critical care time of 32 minutes. This did include time for talking with family, talking with the patient, talking with consultants, ordering tests, reviewing tests, as well as close monitoring of the patient with a hemoglobin of 5.8 and multiple comorbidities. DISPOSITION: The patient is admitted under the care of the Hospitalist Service in fair condition. DO JOSE RAMON GARCÍA/josie /[id number] d: 12/05/16 1838 t: 12/06/16 1544, OUTPATIENT REPORT
--- NOTE | ~2016-12-05 | HP ---
[facility] 76 Y [address] ROOM: [place] [address] LOCATION: GPCU ADMIT DATE: 12/05/2016 History & Physical DISCHARGE DATE: FAMILY PHYSICIAN: Tyrell Loaiza MD ATTENDING PHYSICIAN: Sanjuana JAIME DATE OF SERVICE: CHIEF COMPLAINT: Weakness. HISTORY OF PRESENT ILLNESS: The patient is a 76-year-old female with past medical history of diabetes mellitus type 2; diastolic heart failure; dementia; hypothyroidism; and paroxysmal atrial fibrillation, on Xarelto and aspirin; who presents here with general weakness. The patient lives at assisted living and was found to be weak for the past few days. She also had complained of dark stool and one episode of hematemesis on Monday. The patient reports that she has been fatigued for the past 6 days or so. The patient was brought in by her daughter for further investigation. The patient currently denies chest pain, shortness of breath, abdominal pain, nausea, fever, chills, diarrhea, and change in vision. Of note, the patient was recently admitted on September and was discharged on September 26 after she was admitted with left hip fracture. During this, she had open reduction and internal fixation of the left hip. MEDICAL HISTORY: COPD, diabetes mellitus type 2, diastolic heart failure, dementia, hypothyroidism, peripheral vascular disease, and COPD. SURGICAL HISTORY: Cholecystectomy and left hip ORIF. FAMILY HISTORY: The patient does not remember her family history. SOCIAL HISTORY: The patient lives in assisted living. The patient has dementia. The patient's power of commonwealth attorney is Yu, her daughter. MEDICATIONS: Currently being reconciled. REVIEW OF SYSTEMS: All systems have been reviewed and are negative except for what I mentioned in the HPI. [facility]GE: 76 Y [address] ROOM: [address] [address] LOCATION: GPCU ADMIT DATE: 12/05/2016 History & Physical DISCHARGE DATE: FAMILY PHYSICIAN: Tyrell Loaiza MD ATTENDING PHYSICIAN: Sanjuana JAIME PHYSICAL EXAMINATION: GENERAL APPEARANCE: The patient appeared pale, in no acute distress. HEAD: Normocephalic and atraumatic. EYES: Sclerae nonicteric. ORAL CAVITY: Dry oral mucosa. NOSE: No nasal discharge. EARS: No ear discharge. CHEST: Clear to auscultation bilaterally. HEART: Grade 2 systolic murmur heard on left lower sternal border. Regular rhythm. ABDOMEN: Soft, nontender, and nondistended. Bowel sounds present. SKIN: Pale. EXTREMITIES: No edema. MUSCULOSKELETAL: Range of motion intact. OVEN DRIER TENDER: The patient is alert and oriented x2. Not oriented to time. Motor and sensory grossly intact. LABORATORY DATA AND X-RAYS: Hemoglobin 5.8, platelets 281, and white blood cell count is 9. Blood glucose 224, BUN of 21, creatinine of 0.9, CO2 of 22, and sodium 143. INR of 1. Lactate of 3.9. CT of the head negative for acute changes. Tele shows normal sinus rhythm. ASSESSMENT AND PLAN: 1. Acute blood loss anemia. The patient is presenting with hemoglobin 5.8, compared to hemoglobin of 12.5 from September 13. The patient is currently on Xarelto and aspirin, last of Xarelto yesterday evening. Etiology most likely secondary to upper gastrointestinal bleed since the patient has one episode of hematemesis and tarry stool. BUN is mildly elevated at 21 also. We will start the patient on Protonix drip, start the patient on clear liquid diet with no reds in it. Consult GI for possible endoscopy intervention. We will check hemoglobin every 8 hours. We will transfuse 3 units of packed red blood cell. Check hemoglobin 1 hour after transfusion. 2. Gastrointestinal bleed. See above. 3. Paroxysmal atrial fibrillation, on Xarelto. Holding Xarelto due to ongoing gastrointestinal bleed. 4. Diastolic heart failure. The patient appears compensated. We will hold diuretic and blood pressure medication due to possible ongoing bleed. We will follow the patient clinically. 5. Hypertension. See above. 6. Dementia, ongoing. PATIENT'S NAME: IZABEL PINTO [facility] AGE: 76 Y [address] ROOM: [id number] [place], [place] [address] [facility] DATE: 12/05/2016 History & Physical DISCHARGE DATE: FAMILY PHYSICIAN: Tyrell Loaiza MD ATTENDING PHYSICIAN: Sanjuana JAIME 7. Diabetes mellitus type 2. We will hold metformin. We will start the patient on SSI with low dose of aspart and Accu-Chek. 8. Hypothyroidism. Continue medication of Synthroid. 9. Peripheral vascular disease. Holding aspirin for now. 10. Chronic obstructive pulmonary disease, stable. I have personally reviewed the patient's medical record including, but not limited to, blood work and Radiology report. Total time spent with the patient is greater than 70 minutes, more than 50% of the time is spent in direct patient care and patient consultation. Case was reviewed with the patient. All questions were answered to the patient's satisfaction. Try to contact Yu, her POA, daughter, unable to get a hold of her. She does not have Voicemail set up. We will await for her call. Case was also discussed with Dr. Richmond, our GI doctor. MD MALIKA BARTLETT/josie /[id number] D: [id number] T: [id number] HISTORY & PHYSICAL
--- NOTE | ~2016-12-05 | CON ---
PATIENT'S NAME: [facility] AGE: 76 Y [address] ROOM: [place] [address] LOCATION: GPCU ADMIT DATE: 12/05/2016 Consultation DISCHARGE DATE: FAMILY PHYSICIAN: Tyrell Loaiza MD ATTENDING PHYSICIAN: Sanjuana JAIME REFERRING PHYSICIAN: BENNY ABRAHAM MD This is a 76-year-old female who was admitted through the emergency room. REASON FOR CONSULTATION: Consultation requested for evaluation of upper GI bleeding. HISTORY OF PRESENT ILLNESS: A 76-year-old patient who was admitted with history of several falls within the last 1 month, but did not fall within the last 2 days. She was a patient of Dr. Tyrell Loaiza and was found to have severe anemia in the emergency room. Hemoglobin of 5.8 g. She has a history of hematemesis which transpired on Monday, 02 of December. She also has a history of dark-colored stools. PAST MEDICAL HISTORY: Significant for, 1. Congestive heart failure. 2. Diabetes mellitus, type 2. 3. Chronic respiratory failure. 4. Chronic obstructive pulmonary disease with obstructive sleep apnea. 5. Dementia. 6. Hypothyroidism. 7. Depression. 8. Paroxysmal atrial fibrillation, and she is on Xarelto. PAST SURGICAL HISTORY: 1. She had a goiter surgery. 2. Cholecystectomy. 3. Knee surgery. 4. Laparoscopic cholecystectomy. SOCIAL HISTORY: She denies intake of alcohol and tobacco or illicit drugs. She lives at [facility]. FAMILY HISTORY: There is no relevant family history. ALLERGIES: NOT KNOWN TO ANY DRUGS OR ANESTHESIA. PATIENT'S NAME: [facility] AGE: 76 Y [address] ROOM: [place] [address] LOCATION: GPCU ADMIT DATE: 12/05/2016 Consultation DISCHARGE DATE: FAMILY PHYSICIAN: Tyrell Loaiza MD ATTENDING PHYSICIAN: Sanjuana JAIME MEDICATIONS: As per MAR. REVIEW OF SYSTEMS: Ten-point review of systems is negative other than mentioned above. PHYSICAL EXAMINATION: GENERAL: Reveals a well-developed, elderly female who is uncomfortable and slightly dyspneic while reclining in bed. VITAL SIGNS: Blood pressure is 116/54, pulse is 85 per minute, respirations 16 per minute, and temperature is 98.1 degree Fahrenheit. HEENT: Head: Normocephalic, atraumatic. NECK: Supple. No lymphadenopathy. CHEST: Clear to percussion and auscultation. CARDIAC: S1, S2 normal. She has a systolic murmur, which seems to be hemic murmur. ABDOMEN: Soft, is tender in the epigastrium. There is no rebound tenderness. Bowel sounds are active. LABORATORY DATA: ProBNP is 4837. Hemoglobin as mentioned above. Albumin is 3.2 g. Serum lactate level is 3.9. WBC count is 9000. PT is 10.9, INR is 1.04. She had a CT head which showed no interval change and no acute ischemic or hemorrhagic evidence. ASSESSMENT: Mrs. Pinto has severe anemia with hemoglobin of 5.8 g with associated dizzy spells and history of falls. She also had hematemesis episode. RECOMMENDATION: She needs to be stabilized and controlled. Xarelto should be held and in the next 48 hours on Monday, we will plan to do EGD, at which time she will be stable enough to go through endoscopy. We appreciate sharing care of this patient. MD DIEGO GERMAIN/josie /[id number] PATIENT'S NAME: IZABEL PINTO [facility] AGE: 76 Y [address] ROOM: [address] [place] [id number] [facility] ADMIT DATE: 12/05/2016 Consultation DISCHARGE DATE: FAMILY PHYSICIAN: Tyrell Loaiza MD ATTENDING PHYSICIAN: Sanjuana JAIME CC: Tyrell Loaiza MD d: [birth year] t: 12/06/16 1514, CONSULTATION REPORT
[2016-12-05 14:30] LABS: BASOPHIL % 0.2 %; EOSINOPHIL # 0.1 K/uL (0.0-0.5); EOSINOPHIL % 0.7 %; IMMATURE GRANULOCYTE # 0.1 K/uL (0.0-0.3); IMMATURE GRANULOCYTE % 0.9 %; LYMPHOCYTE # 0.7 K/uL (0.8-4.0); MCV 89.6 fl (83.0-98.0); MONOCYTE # 0.5 K/uL (0.0-1.0); MONOCYTE % 5.8 %; MPV 11.1 fl (9.4-12.4); NEUTROPHIL # (ANC) 7.6 K/uL (1.8-7.8); NEUTROPHIL % 84.4 %; NRBC % 0.2 /100WBC (0-0.00); RDW-CV 16.4 % (11.9-14.6)
[2016-12-05 14:32] LABS: RBC 2.11 M/uL (3.50-5.50)
[2016-12-05 14:34] LABS: HEMATOCRIT 18.9 % (33.0-46.0); HEMOGLOBIN 5.8 g/dL (10.0-15.0); MCH 27.5 pg (27.0-34.0); MCHC 30.7 gm/dL (32.0-36.5); PLATELET COUNT 281 K/uL (150-450)
[2016-12-05 14:37] LABS: INR - (THERAPEUTIC) 1.04 (0.92-1.07); PROTIME 10.9 SECONDS (9.8-11.4); PTT 24 SECONDS (25-32)
[2016-12-05 14:52] LABS: ALBUMIN 3.2 gm/dL (3.5-5.0); ALK PHOS 67 IU/L (33-138); ALT 15 IU/L (12-78); ANION GAP 17.8 (10.0-19.0); AST 15 IU/L (10-40); BLOOD UREA NITROGEN 21 mg/dL (6-24); CALCIUM 8.5 mg/dL (8.5-10.5); CHLORIDE 107 mMol/L (96-110); CO2 22 mMol/L (22-32); CPK 22 IU/L (21-215); CREATININE 0.9 mg/dL (0.5-1.1); ESTIMATED GFR (MDRD EQUATION) > 60; POTASSIUM 3.8 mMol/L (3.7-5.1); SODIUM 143 mMol/L (135-145)
[2016-12-05 14:54] LABS: TOTAL BILIRUBIN 0.4 mg/dL (0.0-1.5)
[2016-12-05 15:56] LABS: BILIRUBIN URINE NEGATIVE (NEGATIVE); BLOOD URINE 10 /UL (NEGATIVE); COLOR URINE YELLOW (YELLOW); GLUCOSE URINE NEGATIVE (NEGATIVE); KETONE URINE NEGATIVE (NEGATIVE); LEUKOCYTES URINE NEGATIVE /UL (NEGATIVE); NITRITE URINE NEGATIVE (NEGATIVE); PROTEIN URINE NEGATIVE (NEGATIVE); TURBIDITY URINE CLEAR (CLEAR); UROBILINOGEN URINE NORMAL (NORMAL)
[2016-12-05 16:03] LABS: BACTERIA URINE FEW (NEGATIVE); EPITHELIAL URINE 0-2 #/HPF (NEGATIVE); HYALINE CAST URINE 0-2 #/LPF (NEGATIVE); WBC URINE 0-2 #/HPF (NEGATIVE)
--- NOTE | 2016-12-05 19:03 | NUR ---
Admission Note: Patient presented to ER after having bloody stools x1 week and a bloody emesis yesterday. Complaints of N/V. Patient has had some increased weakness and fatigue. Patient fell 5 weeks ago and hit head and did not seek help, then fell again 2 weeks ago and injured L) hip. No fracture noted only a deep tissue injury. Patient was admited to PCU and will receive 3units of PRBC. VSS on room air. Patient denies SOB.
[2016-12-05] MEDS ORDERED: LOPRESSOR25 MG PO (20:31)
[2016-12-05] MEDS ORDERED: XARELTO20 MG PO (20:32)
[2016-12-05] MEDS ORDERED: GLUCERNA237 ML PO (20:37)
[2016-12-05] MEDS ORDERED: TRIAMCINOLONE454 GM TOP (20:45)
[2016-12-05] MEDS ORDERED: DULCOLAX10 MG R (20:46)
[2016-12-05] MEDS ORDERED: MILK OF MA400 MG/5 M PO (20:47)
[2016-12-06 05:29] LABS: HEMATOCRIT 25.9 % (33.0-46.0); HEMOGLOBIN 8.4 g/dL (10.0-15.0)
[2016-12-06 05:43] LABS: ANION GAP 14.3 (10.0-19.0); BLOOD UREA NITROGEN 12 mg/dL (6-24); CALCIUM 7.9 mg/dL (8.5-10.5); CHLORIDE 108 mMol/L (96-110); CO2 24 mMol/L (22-32); CREATININE 0.6 mg/dL (0.5-1.1); ESTIMATED GFR (MDRD EQUATION) > 60; MAGNESIUM 1.6 mg/dL (1.8-2.6); POTASSIUM 3.3 mMol/L (3.7-5.1); SODIUM 143 mMol/L (135-145)
--- NOTE | 2016-12-06 05:47 | NUR ---
Significant Event: Patient alert. Disoriented to time and place. SBP 116-153. HR 80s-90s. On RA-2L. Received 2 units PRBC. O2 sats dropped and patient began audibly wheezing. 40mg Lasix given per Dr. Morillo. 6L O2 per NC started. Was able to titrate down to 0.5-2L. Lung sounds back to baseline. Orders to hold 3rd unit of PRBCs until this morning per Dr. Richmond. Patient had 5 beats V-Tach and 12 sec run of A-Fib. Dr. Morillo notified. Labs ordered. Potassium and Mag both low. Replacements ordered. Protonix gtt continues at 8mg/hr with NS at 75ml/hr to Lf. AV PIV. Patient up to bedside commode with 1 assist and gait belt. Calm and cooperative with all cares. Follow up: EGD on Monday.
[2016-12-06] MEDS ORDERED: TYLENOL325 MG PO (12:11)
[2016-12-06 15:07] LABS: HEMATOCRIT 24.3 % (33.0-46.0)
[2016-12-06 15:09] LABS: HEMOGLOBIN 7.9 g/dL (10.0-15.0)
--- NOTE | 2016-12-06 16:26 | NUR ---
I did call Anjelica at [facility] and updated her on pt. Will continue to follow.
--- NOTE | 2016-12-06 16:31 | NUR ---
Significant Event: MAG AND K REPLACED THIS AM. ORTHOSTATIC BPS WERE POSITIVE AND PT WAS DIZZY WHEN STANDING UP; 3RD UNIT OF BLOOD WAS ORDERED BY . WAS JUST ABOUT 2 HOURS INTO THE TRANSFUSION OF THE 3RD (TOTAL) UNIT AND PT WAS UP TO THE BSC; SHE RETURNED BACK TO BED WITH THE CHEF'S ASSISTANT AND BECAME VERY SOB AND COULD NOT GET AIR, SATS WERE LOW 80S ON RA. ORDER FOR 40 IV LASIX; WITHIN 10 MINUTES OF ONSET, PATIENT CONDITION WAS WORSENING WITH FLUSHING, TACHYCARDIA IN THE 110S, AND AUDIBLE WHEEZING; BLOOD TRANSFUSION WAS STOPPED AT [address] ACOSTA IMMEDIATELY NOTIFIED AND WAS UP TO BEDSIDE. 80 MG SOLUMEDROL, 12.5 MG IV BENADRYL, DUONEB, AND RACEMIC EPI BREATHING TX'S WERE GIVEN; O2 AT 5L; CONDITION IMPROVED QUICKLY AND SYMPTOMS RESOLVED. LAB W/O FOR TRALI DONE. CXR DONE & NO ACUTE CHANGE PER REPORT. DAUGHTER WAS UPDATED ON CONDITION CHANGE. SOLUMEDROL DOSE REPEATED AGAIN THIS AFTERNOON AND TO REPEAT THIS EVENING. HGB RECHECK AT 1500 WAS 7.9-MD NOTIFIED AND TO REPEAT H, RENAL, AND MG AT 1999 AND REPORT TO HOSPITALIST. DC INSERTED AND HAD 2100 MLS TOTAL UOP FOR SHIFT. NO BM OR HEMOPTYSIS THIS SHIFT. REPOSITIONED Q2H AND ALOE TO BUTTOCKS. IV SALINE LOCKED. TOLERATES CLEAR LIQUIDS. NPO P MN FOR EGD TMRW. Follow up: CONTINUE PLAN OF CARE; TRANSFUSION RXN WORKUP.
[2016-12-06 21:01] LABS: HEMOGLOBIN 9.8 g/dL (10.0-15.0)
[2016-12-06 21:15] LABS: ALBUMIN 3.3 gm/dL (3.5-5.0); ANION GAP 17.6 (10.0-19.0); CALCIUM 8.4 mg/dL (8.5-10.5); PHOSPHORUS 3.1 mg/dL (2.5-4.9); POTASSIUM 4.6 mMol/L (3.7-5.1)
[2016-12-07 04:56] LABS: HEMATOCRIT 29.5 % (33.0-46.0); HEMOGLOBIN 9.6 g/dL (10.0-15.0)
[2016-12-07 05:12] LABS: ALBUMIN 3.3 gm/dL (3.5-5.0); ANION GAP 13.1 (10.0-19.0); BLOOD UREA NITROGEN 12 mg/dL (6-24); CALCIUM 8.9 mg/dL (8.5-10.5); CHLORIDE 108 mMol/L (96-110); CO2 25 mMol/L (22-32); CREATININE 0.6 mg/dL (0.5-1.1); ESTIMATED GFR (MDRD EQUATION) > 60; MAGNESIUM 2.2 mg/dL (1.8-2.6); PHOSPHORUS 3.3 mg/dL (2.5-4.9); POTASSIUM 4.1 mMol/L (3.7-5.1); SODIUM 142 mMol/L (135-145)
--- NOTE | 2016-12-07 05:37 | NUR ---
Significant Event: A/Ox3, forgetful. Pain in left shoulder at times, from recent falls before hospital admittance. denied pain medication. VSS on RA. SBP 130-150s. HR 70-80s. LS clear/dim. Bowel sounds active. No BM. HGB this am 9.6. Protonix gtt running @ 8/hr. Bilat IVs patent. Alana w/ 525ml out. NPO since midnight for EGD today. Follow up: EGD today.
--- NOTE | 2016-12-07 11:04 | NUR ---
Significant Event: Patient was oriented x3. Forgetful at times. Has a history of dementia and can become confused at times. VSS on room air. Protonix 8mg/hr running in R) wrist IV. Went down to endo for EGD/colonoscopy. No BM this shift. Denies abdominal pain and N/V. up with 1a/walker.
--- NOTE | 2016-12-07 11:54 | NUR ---
I did talk with DR Shaw and believes she maybe ready to return to [facility] tomorrow. She did order therapy for today. I did update Anjelica at [facility] and she will be up to assess tomorrow at noon to make sure she is safe to come back. Pt was just admitted to them on 11/11/16 from [facility]. She states her daughter does not really help out much with her mother. Anjelica did say they are spending down her money to get her on medicaid. WIll see what the results of EGD is and also how she does with therapy.
--- NOTE | 2016-12-07 15:39 | NUR ---
Introduced self and role of care management to pt. Pt states she lives up at [facility] and does like it there. She states she is up with her walker and the do her meds, cooking, cleaning and laundry. She does do outpt therapy there. I did ask about if she was strong enough to return and she states yes and did metion [facility] and no she really just wants to go back to [facility]. Will continue to follow.
--- NOTE | 2016-12-07 15:40 | NUR ---
Significant Event: ASSUMED CARES AT 1230, FROM ENDO AT 1315. A/O X 3, SLIGHTLY FORGETFUL. FOLLOWS COMMANDS. LUNGS CLEAR AND DIM ON ROOM AIR. DENIES PAIN. IV IN RT WRIST WITH PROTONIX DRIP INFUSING AT 8MG/HR. UP WITH 1 ASSIST AND WALKER. DC PATENT DRAINING YELLOW URINE. ACCUCHECKS AC/HS. ENDOSCOPY DONE TODAY, NO ACTIVE BLEEDING FOUND. Follow up: MONITOR. D/C DC SOON? MONITOR HGB.
[2016-12-08 04:30] LABS: ALBUMIN 3.2 gm/dL (3.5-5.0); BLOOD UREA NITROGEN 19 mg/dL (6-24); CALCIUM 8.3 mg/dL (8.5-10.5); CHLORIDE 110 mMol/L (96-110); CO2 28 mMol/L (22-32); CREATININE 0.9 mg/dL (0.5-1.1); ESTIMATED GFR (MDRD EQUATION) > 60; HEMATOCRIT 29.2 % (33.0-46.0); HEMOGLOBIN 9.1 g/dL (10.0-15.0); MAGNESIUM 1.9 mg/dL (1.8-2.6); PHOSPHORUS 3.4 mg/dL (2.5-4.9); SODIUM 143 mMol/L (135-145)
--- NOTE | 2016-12-08 04:42 | NUR ---
Significant Event: A/0X3. FORGETFUL. BED ALARM ON. TURNED Q 2 HRS SIDE TO SIDE. 1 ASSIST WITH WALKER AND GB. AFEBRILE. VSS ON RA. DENIES PAIN. IV TO R) WRIST WITH PROTONIX RUNNING AT 8 MG/HR. DC PRESENT WITH 300 MLS OUT. NO BM THIS SHIFT. NO C/O OF N/V OR ABD PAIN. Follow up: CONTINUE WITH PLAN OF CARE.
--- NOTE | 2016-12-08 09:17 | NUR ---
PT MOVED TO NO RISK W/ 75-100% INTAKE. WILL DISCONTINUE ENSURE CLEAR TID AND CHANGE TO GLUCERNA BID TO HELP MAINTAIN LEAN MASS. ASSIST NEEDED.
--- NOTE | 2016-12-08 12:31 | NUR ---
I called and faxed orders to [facility] and called and they stated Anjelica is out today. I told them they need to notify her because pt is ready to return back and continue outpt therapy.
--- NOTE | 2016-12-08 14:29 | NUR ---
I called up again and spoke with [facility] and she stated Tania was on her way down to assess and have concerns about falls. I explained she has not fallen for us and if she was for you it would be because of a hgb of 5.0. I stated there is no reason she can not return back her her living. I updated Loida ANGEL[place].
--- NOTE | 2016-12-08 15:40 | NUR ---
I did call Janeth at [facility] and yes they will accept back and yes it is fine if daughter picks her up at 5pm. I did tell this to Loida Hurley because the daughter is the one that said she was coming at this time. Will assist as needed.
[2016-12-08] MEDS ORDERED: PROTONIX40 MG PO (16:52)
[2016-12-08] MEDS ORDERED: FEOSOL325 MG PO (16:53)
--- NOTE | 2016-12-08 17:41 | NUR ---
Significant Event: pt up amb hallx2 standby and walker. Alana butlerd this am pt voids x2. No c/o pain. Pt sleeps most of afternoon. IV drip dcd. [facility] came and evaluated pt and will take pt. Daughter will drive pt. Follow up:
--- NOTE | 2016-12-08 18:47 | NUR ---
d-dr bright pt dc i-pt voided well after jung dcd, iv dcd intact, chf teaching done, all meds explained and info given on new meds, rx given, Packet given to daughter for doreencov, pt eats/drinks well today, no c/o. r-pt and daughter have no questions p-ta took pt out per wc to daughter car
== END 2016-12-08 18:05 | disposition other institution (70) | DRG 378 ==
LOC: GMED 13:50 → GPCU 17:20
PROVIDERS: Emergency Medicine; Internal Medicine; Internal Medicine Adolescent Medicine; ADMIT Internal Medicine
DX: K29.81 Duodenitis with bleeding (principal); D62 Acute posthemorrhagic anemia; E87.2 Acidosis; I11.0 Hypertensive heart disease with heart failure; I50.32 Chronic diastolic (congestive) heart failure; F03.90 Unspecified dementia, unspecified severity, without behavioral disturbance, psychotic disturbance, mood disturbance, and anxiety; J95.84 Transfusion-related acute lung injury (TRALI); I48.0 Paroxysmal atrial fibrillation; E11.9 Type 2 diabetes mellitus without complications; E03.9 Hypothyroidism, unspecified; I35.0 Nonrheumatic aortic (valve) stenosis; Y84.8 Other medical procedures as the cause of abnormal reaction of the patient, or of later complication, without mention of misadventure at the time of the procedure; J44.9 Chronic obstructive pulmonary disease, unspecified; Z90.49 Acquired absence of other specified parts of digestive tract; I73.9 Peripheral vascular disease, unspecified
CPT/HCPCS: C9113; J1200; J1940; J2920; J3475; J3480; J7030; J7040; J7050; J7060; J7120; P9016

== ENCOUNTER → 2016-12-13 | Outpatient (CLI) | payer MEDICARE, OTHER ==
[~2016-12-13] MED LIST changes: +ARICEPT 5 MG5 MG PO; +ATIVAN 0.5MG0.5 MG PO; +DULCOLAX10 MG R; +FEOSOL325 MG PO; +GLUCERNA237 ML PO; +LASIX20 MG PO; +LIPITOR80 MG PO; +LOPRESSOR25 MG PO; +MILK OF MA400 MG/5 M PO; +PRINIVIL OR ZES10 MG PO; +PRINIVIL5 MG PO; +PROTONIX40 MG PO; +TRIAMCINOLONE454 GM TOP; +XARELTO20 MG PO
--- NOTE | ~2016-12-13 | ECHO ---
Transthoracic Echocardiography Report (TTE) Demographics Patient Name IZABEL PINTO Date of Study 12/13/2016 K Patient Number [id number] Visit Number [id number] Date of 1940 Room Number Accession Number [id number] Gender Female Age 76 year(s) Referring Jose Duarte MD Network Administrator Physician Physician Interpreting Silvina Blake MD Underpresser Hand Physician Supervising Ordering Physician MD/LAURA Nurse Stress Field Mechanical Meter Tester Conclusions Contractility Score Summary Normal Left Ventricular contractility was noted. Summary The estimated left ventricular ejection fraction is > 75%. Left ventricle is hyperdynamic with a mid-cavity and left ventricular outflow tract obstruction noted. Severe concentric left ventricular hypertrophy. The left atrium is severely dilated by LA volume index measurement. Severe mitral regurgitation by color Doppler. Moderate to severe calcification of the mitral valve. The mitral regurgitation jet is anteriorly directed . Moderate mitral valve stenosis. The mean gradient is 6 mmHg. There is severe aortic stenosis by the Continuity Equation. The peak velocity is 4.34 m/s, the mean gradient is 41 mmHg, and the valve area based on the continuity equation is 1.39 cm2. Mild-moderate tricuspid regurgitation by color Doppler. There is moderate pulmonary hypertension. The pulmonary pressure (RVSP) is 51.82 mmHg. Procedure Type of Study TTE procedure:2D Echocardiogram. Procedure Date Date: 12/13/2016 Start: 09:24 AM M-Mode/2D Measurements LV Diastolic Dimension: 3.58 cm LV Systolic Dimension: 1.39 cm LV Septum Diastolic: 2.29 cm LV PW Diastolic: 2.09 cm LA volume: 101 ml LVOT: 2 cm LVOT VTI: 46.1 cm RV Base: 2.97 cm LV Stroke volume: 144.75 ml RV Length: 4.97 cm TAPSE: 2.56 cm TDI-S': 14.8 cm/s Doppler Measurements AV Peak Velocity: 4.34 m/s MV Peak E-Wave: 1.49 m/s AV Peak Gradient: 75.34 mmHg MV Peak A-Wave: 1.21 m/s AV Mean Gradient: 41 mmHg MV E/A Ratio: 1.23 LVOT Peak Velocity: 2.29 m/s MV P1/2t: 74 msec TR Gradient:43.82 mmHg PV Peak Velocity: 0.75 m/s Estimated RAP:8 mmHg PV Peak Gradient: 2.27 mmHg Estimated RVSP: 52 mmHg Estimated PASP: 51.82 mmHg E' Septal Velocity: 0.02 m/s A' Septal Velocity: 0.05 m/s E' Lateral Velocity: 0.04 m/s A' Lateral Velocity: 0.07 m/s Findings Left Ventricle Severe concentric left ventricular hypertrophy. Left ventricle is hyperdynamic with a mid-cavity and left ventricular outflow tract obstruction noted. Right Ventricle Normal right ventricle structure and function. Left Atrium The left atrium is severely dilated. Right Atrium Normal right atrial size. Mitral Valve Severe mitral regurgitation by color Doppler. Moderate to severe calcification of the mitral valve. The mitral regurgitation jet is anteriorly directed . Mild to moderate mitral valve stenosis. The mean gradient is 6 mmHg. Aortic Valve There is severe aortic stenosis by the Continuity Equation. The peak velocity is 4.34 m/s, the mean gradient is 41 mmHg, and the valve area based on the continuity equation is 1.39 cm2. Tricuspid Valve Mild-moderate tricuspid regurgitation by color Doppler. There is moderate pulmonary hypertension. The pulmonary pressure (RVSP) is 51.82 mmHg. Pulmonic Valve Mild pulmonic valve regurgitation by color Doppler. Pericardial Effusion No evidence of pericardial effusion. Miscellaneous Visualized portions of the aortic root and ascending aorta appear normal in size. Pleural Effusion No evidence of pleural effusion. Contractility Score LV regional wall motion:(0-Non visualized 1-Normal 2-Hypokinesis 3-Akinesis 4-Dyskinesis 5-Aneurysm) Signature dtt: Hayden Cool (cardio) dtd: 12/13/16 0924 Physician Self Edit
== END | disposition disaster alternative care site (69) ==
LOC: GCAR 08:54
DX: Z09 Encounter for follow-up examination after completed treatment for conditions other than malignant neoplasm (principal); I50.32 Chronic diastolic (congestive) heart failure; I48.0 Paroxysmal atrial fibrillation; I05.2 Rheumatic mitral stenosis with insufficiency; I35.0 Nonrheumatic aortic (valve) stenosis; I07.1 Rheumatic tricuspid insufficiency; I27.2 Other secondary pulmonary hypertension; R01.1 Cardiac murmur, unspecified

== ENCOUNTER → 2017-01-02 | Outpatient (CLI) | payer MEDICARE, OTHER ==
[2017-01-02 14:53] LABS: BASOPHIL % 0.3 %; EOSINOPHIL # 0.2 K/uL (0.0-0.5); EOSINOPHIL % 1.8 %; HEMOGLOBIN 12.4 g/dL (10.0-15.0); IMMATURE GRANULOCYTE # 0.1 K/uL (0.0-0.3); IMMATURE GRANULOCYTE % 0.5 %; LYMPHOCYTE # 0.9 K/uL (0.8-4.0); LYMPHOCYTE % 8.5 %; MCV 90.1 fl (83.0-98.0); MONOCYTE # 0.6 K/uL (0.0-1.0); MONOCYTE % 5.8 %; NEUTROPHIL # (ANC) 8.4 K/uL (1.8-7.8); NEUTROPHIL % 83.1 %; NRBC % 0 /100WBC (0-0.00); WBC 10.1 K/uL (4.0-11.0)
[2017-01-02 14:59] LABS: MCH 28.6 pg (27.0-34.0); MCHC 31.8 gm/dL (32.0-36.5); PLATELET COUNT 344 K/uL (150-450); RBC 4.33 M/uL (3.50-5.50); RDW-CV 14.4 % (11.9-14.6)
[2017-01-02 15:11] LABS: ALBUMIN 3.6 gm/dL (3.5-5.0); ANION GAP 11.1 (10.0-19.0); CALCIUM 8.8 mg/dL (8.5-10.5); PHOSPHORUS 3.9 mg/dL (2.5-4.9); POTASSIUM 4.1 mMol/L (3.7-5.1)
== END | disposition disaster alternative care site (69) ==
LOC: LCNC 14:42
PROVIDERS: Internal Medicine Interventional Cardiology
DX: I35.0 Nonrheumatic aortic (valve) stenosis (principal); E03.9 Hypothyroidism, unspecified

== ENCOUNTER 2017-01-19 04:48 | Inpatient (IN) | payer MEDICARE, OTHER ==
[~2017-01-19] VITALS: Ht 165.1 cm; Wt 69.0 kg
--- NOTE | ~2017-01-19 | CATH ---
Cardiac Diagnostic Report Demographics Patient Name BLAIR Gender Female IZABEL Sesay Date of 1940 Age 76 year(s) Patient Number [id number] Date of Study 01/20/2017 Visit Number [id number] Room Number G[address] [place] [id number] Ht 165.1 cm Wt 71 kg Referring Jose Duarte MD Primary Physician Physician Performing Silvina Blake MD Secondary Physician Physician Diagnostic Silvina Blake MD Assisting Physician Physician Interventional Physician Rail Specialist Physician Findings and Conclusions Diagnostic Findings and Conclusion Nonobstructive CAD. Wedge 34. Severe pulmonary HTN, tall V waves on wedge tracing. Diagnostic Recommendations Medical therapy. Manual pressure for hemostasis. Procedure Description The patient was brought to the diagnostic cardiac catheterization-EP laboratory in the fasting, non-sedated state. Informed consent was obtained in the written and verbal form after the risks and benefits were explained. The patient had no further questions and agreed to proceed. The planned puncture-incision site(s) were shaved and prepped with ChloraPrep and draped in the usual sterile manner. Conscious sedation, supplemental oxygen, and pain control medications were delivered by a registered nurse under physician guidance. Surface ECG rhythm, blood pressure measurement, and pulse oximetry were monitored throughout the procedure. Arterial access. The access site was infiltrated with lidocaine. The vessel was entered with the Seldinger technique. A sheath was advanced into the vessel and used for catheter placement. Venous access. The access site was infiltrated with 2% lidocaine. The vessel was entered with the Seldinger technique. A sheath was advanced into the vessel and used for catheter placement. Selective left coronary angiography. A catheter was advanced into the left coronary vessel ostium under Fluoroscopic guidance. Contrast was injected by hand. Images were obtained in multiple projections. Selective right coronary angiography. A catheter was advanced into the right coronary vessel ostium under fluoroscopic guidance. Contrast was injected by hand. Images were obtained in multiple projections. Left heart catheterization. A catheter was advanced across the aortic valve to the left ventricle under fluoroscopic guidance. Resting hemodynamics were obtained. Right heart catheterization. A [place]dee catheter was successfully advanced to the right atrium, right ventricle, pulmonary artery, and pulmonary artery wedge position under fluoroscopic guidance. Resting hemodynamics were obtained. Measurements included pressures, arterial and venous oxygen saturation samples, and cardiac output. The [place] was removed without difficulty. Arterial and Venous hemostasis was achieved. The patient was transferred to a regular nursing floor via cart accompanied by a nurse. The patient left the laboratory in stable condition. Diagnostic Cath Status: Urgent Procedure Procedure Type Diagnostic procedure:Angiography:, Right and Left Heart Cath Indications: CHF, Respiratory failure and COPD. The procedure was explained in detail to the patient. Risks, complications and alternative treatments were reviewed. Written consent was obtained. Medications Reviewed with Patient prior to Procedure. Angiographic Findings Dominance: Mixed Cardiac Arteries and Lesion Findings LMCA: Normal (0% Stenosis).Large, normal. LAD: Calcified, large. Diagonal 1 small. Diagonal 2 medium mild plaque. Lesion on Mid LAD: 50% stenosis . LCx: Normal (0% Stenosis) and Abnormal.Codominant, large plaque. OM1 and 2 small okay. OM 3 and 4 medium, okay. RCA: Abnormal.Codominant, medium, mild plaque. PL small, ok. PDA medium, ok. Coronary Tree Procedure Data Procedure Date Date: 01/20/2017Start: 03:10 PMEnd: 04:20 PM Entry Locations - Retrograde Percutaneous access was performed through the Right Femoral artery (Primary location). A 6 Fr sheath was inserted. Hemostasis was successfully obtained using Manual Compression. Closure Comments: Pressure held by Roslyn Arreguin RN for 20 minutes.. - Antegrade Percutaneous access was performed through the Right Femoral vein. A 7 Fr sheath was inserted. Hemostasis was successfully obtained using Manual Compression. Closure Comments: Pressure held for 10 minutes.. Procedure Medications Order and Administration + + + +-------+ !Time !Medication !Dosage !Route ! + + + +-------+ !01/20/2017 03:06 PM !Fentanyl !25 mcg !I.V. ! + + + +-------+ !01/20/2017 03:18 PM !Fentanyl !25 mcg !I.V. ! + + + +-------+ !01/20/2017 03:37 PM !Oxygen !2 l/min !NC ! + + + +-------+ Devices Used - A6 Fr. BS Angled Pigtail Diag. Catheterwas used for:LV Pressures. - A6 Fr. BS JL 4 Diag. Catheterwas used for:Left coronary angiography. - A6 Fr. BS JR 4 Diag. Catheterwas used for:Right coronary angiography. Contrast Material - Isovue 88859 ml Fluoroscopy Time: Diagnostic: 8:54 minutes. Total: 8:54 minutes. Fluoroscopy Dose: Diagnostic: 821 mGy. Total: 821 mGy. Estimated Blood Loss: 6 ml. Medical History Allergies - Other:(Labetolol). - Other:(Labetolol). Risk Factors The patient risk factors include:prior PCI;peripheral arterial disease, hypertension, family history of premature CAD, chronic lung disease, last creatinine: 0.8 mg/dl, creatinine clearance: 68.1 ml/min, dyslipidemia, former tobacco use and prior heart failure . Admission Data Admission Date: 01/19/2017 Admission Time: 08:43 AM Admit Source: Emergency department Insurance Payors: Medicare. Clinical Evaluation Leading to Procedure - Anti-anginal medications were prescribed during the past two weeks. The medication is: Beta Blockers. - The patient has been in a state of heart failure within the past two weeks. - The patient's heart failure status was assessed as NYHA Class I. Hemodynamics Condition: Rest O2 Consumption: Estimated: 161.04Heart Rate: 69 bpm Oxygen Saturation +--------+-----+----+ +---+ + !Location!pCO2 !pO2 !% Saturation !Hgb!O2 Content ! +--------+-----+----+ +---+ + !SVC ! ! !47.8 ! ! ! +--------+-----+----+ +---+ + !IVC ! ! !48.8 ! ! ! +--------+-----+----+ +---+ + !RA ! ! !43.7 ! ! ! +--------+-----+----+ +---+ + !FA ! ! !89 ! ! ! +--------+-----+----+ +---+ + Pressures (mmHg) +-----+ + !Site !Pressure ! +-----+ + !RA !9/7 (7) ! +-----+ + !RV !63/3 ,9 ! +-----+ + !PA !70/31 (48) ! +-----+ + !PCW ! (33) ! +-----+ + !LV !213/11 ,26 ! +-----+ + !LV !231/20 ,30 ! +-----+ + !AO !197/96 (132) ! +-----+ + !PCW !30/49 (34) ! +-----+ + !PA !65/30 (47) ! +-----+ + Cardiac Output + + +------+ !Time !Cardiac Output (l/min) !Use ! + + +------+ !01/20/2017 03:45 PM !4.83 !False ! + + +------+ !01/20/2017 03:46 PM !2.89 !True ! + + +------+ !01/20/2017 03:47 PM !2.18 !False ! + + +------+ !01/20/2017 03:47 PM !2.47 !True ! + + +------+ !01/20/2017 03:48 PM !2.7 !True ! + + +------+ Cardiac Output +-------+ + + + !Method !CO (l/min) !CI (l/min/m2) !SV (ml) ! +-------+ + + + !Mick !1.91 !1.1 !27.59 ! +-------+ + + + !Thermal!2.928424 !1.5 !37.84 ! +-------+ + + + Shunts Oxygen Values O2 Capacity 186.32 O2 Consumption 161.04 Flows (l/min) Qs 2.11 Vascular Resistance (dynes x sec x cm-5) + +-----+-----+-----+----+---------+-------+ !CO method !TSVR !SVR !TPVR !PVR !TPVR/TSVR!PVR/SVR! + +-----+-----+-----+----+---------+-------+ !Mick !69.32!65.76!24.36!6.33!0.35 !0.1 ! + +-----+-----+-----+----+---------+-------+ !Thermal !49.28!46.75!17.32!4.5 !0.35 !0.1 ! + +-----+-----+-----+----+---------+-------+ !Qp or Qs !62.75!59.52! ! ! ! ! + +-----+-----+-----+----+---------+-------+ Signatures dtt: Hayden Cool (cardio) dtd: 01/20/17 1510 Physician Self Edit
--- NOTE | ~2017-01-19 | CON ---
PATIENT'S NAME: IZABEL PINTO [facility] AGE: 76 Y [address] ROOM: [id number] [place], [place] [address] LOCATION: GPCU ADMIT DATE: 01/19/2017 Consultation DISCHARGE DATE: FAMILY PHYSICIAN: TATUM MONCADA MD ATTENDING PHYSICIAN: Sanjuana ABRAHAM REFERRING PHYSICIAN: Hayden Villafuerte MD REFERRING PHYSICIAN: Sanjuana Abraham MD. REASON FOR CONSULT: Shortness of breath. HISTORY OF PRESENT ILLNESS: This is a 76-year-old female who was admitted through the emergency room with complaints of shortness of breath and increased confusion. She lives in an assisted living and called the nursing staff and had increased confusion and shortness of breath. Upon arrival of an EMS, she was found to have an SpO2 of 65%. She received steroids and 2 breathing treatments by EMS personnel. She was transferred to the emergency room, feeling much better. She was wearing oxygen and her O2 saturations were above 90. She underwent a CT scan to rule out PE, which was negative. Her chest x-ray findings were consistent with cardiomegaly and mild vascular congestion. There was concern for pulmonary edema, she received Lasix in the emergency room. She had very good output with it. She was seen on 01/02/2017 at [facility]. At that time, she was complaining of increased shortness of breath as well as increased pedal edema. On December 13, 2016, she had an echocardiogram which showed moderate mitral valve stenosis and severe aortic valve stenosis. Peak velocities were 4.34 msec, mean gradient 41 mmHg, valve area was estimated at 1.39 sq cm. Ejection fraction was greater than 75% and her RVSP was 51.82 consistent with moderate pulmonary hypertension. She was scheduled for right and left heart catheterization this past Monday, but canceled. Currently, she states that her shortness of breath is much better. She still has a little increased peripheral edema. She is complaining of some mild lightheadedness. She denies presyncope or syncopal episodes. PAST MEDICAL HISTORY: 1. Recent GI bleed secondary to duodenitis, 12/05/2016. 2. Paroxysmal atrial fibrillation, in a normal sinus rhythm. 3. High-risk medications. 4. Long-term anticoagulation, currently on hold due to recent GI bleed secondary to duodenitis. 5. Nonobstructive coronary artery disease. 6. Peripheral vascular disease with stent to the left femoral artery with PATIENT'S NAME: IZABEL PINTO [facility] AGE: 76 Y [address] ROOM: [id number] [place], [place] [address] LOCATION[facility] ADMIT DATE: 01/19/2017 Consultation DISCHARGE DATE: FAMILY PHYSICIAN: TATUM MONCADA MD ATTENDING PHYSICIAN: Sanjuana ABRAHAM occluded right SFA. 7. Nocturnal hypoxia, but she has not been wearing any oxygen since she moved to [facility]. 8. Hypertension. 9. Hyperlipidemia. 10. CVA/TIA. 11. Hypothyroid. 12. Problems with frequent urinary tract infections. 13. She is a former tobacco user. 14. Aortic stenosis. 15. Late onset Alzheimer disease. 16. Diabetes mellitus. 17. COPD. 18. Depression. PAST SURGICAL HISTORY: 1. She had surgery on her thyroid. 2. Cholecystectomy. 3. Left heart catheterization showing nonobstructive disease, 04/05/2010. 4. Bilateral selective renal angiography with iliac angiography and runoff with occluded SFA on the right. 5. Recommended femoral-popliteal bypass, 07/19/2011. 6. Left hip fracture, 08/29/2016. ALLERGIES: NONE TO MEDICATION. CURRENT MEDICATIONS: 1. Acetaminophen 325 mg, she takes 2 tablets every 4 hours p.r.n. pain or fever; 325 mg 2 tablets p.o. t.i.d. 2. Aspirin 81 mg daily. 3. Dulcolax 10 mg daily. 4. Aricept 5 mg daily. 5. Ferrous sulfate 325 mg daily. 6. Levothyroxine 150 mcg daily. 7. Ativan 0.5 mg every h.s. p.r.n. 8. Milk of magnesia 30 mL every 24 hours p.r.n. 9. Metformin 500 mg p.o. b.i.d. 10. Metoprolol tartrate 25 mg daily. 11. Protonix 40 mg b.i.d. 12. Zoloft 150 mg every. 13. Spironolactone 25 mg daily. 14. Triamcinolone 0.1% cream topically t.i.d. to the elbows and buttocks. FAMILY HISTORY: PATIENT'S NAME: IZABEL PINTO [facility] AGE: 76 Y [address] ROOM: [id number] [place], [place] [address] LOCATION: [facility] ADMIT DATE: 01/19/2017 Consultation DISCHARGE DATE: FAMILY PHYSICIAN: TATUM MONCADA MD ATTENDING PHYSICIAN: Sanjuana ABRAHAM Father is . Mother at the age of 95, she had "a bad heart and diabetes mellitus." SOCIAL HISTORY: The patient is living at [facility]. She moved here after her hip fracture. She quit smoking in 2009. She had a history of smoking 2 packs of cigarettes a day for over 50 years. She does not drink alcohol. REVIEW OF SYSTEMS: GENERAL: She denies any fevers, chills, or sweats. No weight loss or weight gain. HEENT: Head: No history of headache. Eyes: No blurred vision or double vision. Ears: No problems with hearing. CV: Per HPI. PULMONARY: She has a history of COPD as well as asthma. She has been hypoxic and short of breath. GASTROINTESTINAL: Negative for nausea, vomiting, or diarrhea. She had a recent GI bleed with an EGD showing duodenitis. GENITOURINARY: She has problems with frequent urinary tract infections. ENDOCRINE: She is diabetic as well as hypothyroid. NEUROLOGIC: She does have problems with memory. No problems with anxiety at this time. DERMATOLOGIC: No skin, hair, or nail changes that are concerning. HEMATOLOGIC: She denies anemia, leukemia, or cancer. MUSCULOSKELETAL: She is post hip fracture, but doing very well. PHYSICAL EXAMINATION: VITAL SIGNS: She is 65 inches tall. Her weight is 156 pounds with a BMI of 26, blood pressure 139/65, heart rate 73, and temperature is 97.9. GENERAL: this is an alert and oriented female who appears to be in no acute distress at this time. SKIN: Warm, dry, and pink. HEENT: Pupils equal, round, and react briskly to light. EOMs are intact. NECK: Soft and supple. JVD is flat. I am unable to appreciate any carotid bruits. CV: Regular without S2. She has a grade 2 to 3 over 6 aortic stenotic murmur, heard best at the 2nd intercostal space. She also has a mitral regurgitant murmur noted at the base of the heart. LUNGS: Lung sounds were very diminished. There are no wheezes or rales. GASTROINTESTINAL: Abdomen is soft. Bowel sounds are present in all 4 quadrants. EXTREMITIES: 2+ distal pulses. There is no clubbing or cyanosis. She does have a trace pedal edema. NEUROLOGICAL: She is alert and oriented to person, place, and time. She does walk with a walker and assistance. PATIENT'S NAME: IZABEL PINTO [facility] AGE: 76 Y [address] ROOM: [id number] [place] [id number] LOCATION: [facility] ADMIT DATE: 01/19/2017 Consultation DISCHARGE DATE: FAMILY PHYSICIAN: TATUM MONCADA MD ATTENDING PHYSICIAN: Sanjuana ABRAHAM DERMATOLOGIC: No lesions noted. PSYCHIATRIC: Mood and affect are pleasant. ASSESSMENT: 1. Severe aortic stenosis. We are going to go ahead workup and plan for right and left heart catheterization. Further recommendations will be forthcoming after the heart catheterization. Dr. Villafuerte has explained the risks and benefits to her and she is in agreement and willing to proceed. 2. Acute diastolic heart failure. Symptoms most likely related to severe aortic stenosis. 3. Paroxysmal atrial fibrillation. She remains in a regular sinus rhythm. She is currently not on antiarrhythmic therapy. 4. Long-term anticoagulation. All anticoagulants are being held due to recent gastrointestinal bleed. 5. Diabetes mellitus. She will continue the same home medications. 6. Nocturnal hypoxia. We would recommend doing an overnight trend oximetry before she leaves due to pulmonary hypertension. The assessment and plan, history of present illness, and physical exam are per Dr. Villafuerte. We would like to thank Dr. Abraham for allowing us to participate in the patient's care. WES HENSLEY APRN FOR HAYDEN VILLAFUERTE MD TGP/modl /[id number] d: 01/20/17 1818 t: 01/27/17 0953, CONSULTATION REPORT
--- NOTE | ~2017-01-19 | CON ---
[facility]GE[facility] 77 Y [address] ROOM: [place] [address] LOCATION: GPCU ADMIT DATE: 01/19/2017 Consultation DISCHARGE DATE: 01/23/2017 FAMILY PHYSICIAN: Richard Garcia MD ATTENDING PHYSICIAN: Sanjuana Abraham DATE OF CONSULTATION: 01/23/2017 REFERRING PHYSICIAN: Hayden Cool MD REFERRING PROVIDER: Dr. Abraham LOCATION: [facility], room [facility]. CHIEF COMPLAINT: Palliative care referral for outpatient followup due to symptomatic valvular disease. HISTORY OF PRESENT ILLNESS: The patient is a 77-year-old female, resident of [facility], with a history of vuba-ub-wzwaftim dementia; a recent hospitalization due hip fracture, status post ORIF, and a short skilled stay at [facility]; COPD; and paroxysmal atrial fibrillation. Family reports that the patient has been in the [facility] for approximately 3 months during which time she did have a hospitalization related to a GI bleed as well. The last month at the [facility], the daughter has noticed increased confusion with complaints of not being able to sleep at night due to shortness of breath. Assisted living staff on the day of admission found her to be increasingly short of breath at rest, and she was found to have saturations in the 60s. She did have an echo done in December 2016 which showed moderate mitral stenosis, severe aortic stenosis, and moderate pulmonary hypertension. During this hospitalization, she did also undergo cardiac catheterization which showed nonobstructive coronary artery disease and aortic stenosis. Given the patient's multiple recent hospital admissions, her dementia, a history of recurrent falls, and her valvular disease, Palliative Care has been consulted to assist with outpatient management. PREVIOUS OPERATIONS: 1. Left hip repair in August 2016. 2. Cholecystectomy. 3. Heart catheterization. 4. Right knee surgery. PAST MEDICAL HISTORY: [facility]GE[facility] 77 Y [address] ROOM: [place] [address] LOCATION: GPCU ADMIT DATE: 01/19/2017 Consultation DISCHARGE DATE: 01/23/2017 FAMILY PHYSICIAN: Richard Garcia MD ATTENDING PHYSICIAN: Leigh,Dagmawe 1. Chronic diastolic heart failure. 2. Diabetes mellitus, type 2. 3. Hypothyroidism. 4. Dementia. 5. COPD. 6. Depression. 7. GERD. 8. History of duodenitis. 9. Paroxysmal atrial fibrillation. MEDICATIONS: Home medication list includes: 1. Tylenol 650 mg every 4 hours as needed. 2. Aspirin 81 mg daily. 3. Lipitor 80 mg daily. 4. Dulcolax suppository. 5. Aricept 5 mg daily. 6. Ferrous sulfate 325 mg daily. 7. Levothyroxine 150 mcg daily. 8. Lisinopril 10 mg twice daily. 9. Ativan 0.5 mg every 8 hours as needed. 10. Milk of magnesia as needed. 11. Glucophage 500 mg twice daily. 12. Lopressor 62.5 mg daily. 13. Protonix 40 mg daily. 14. Zoloft 150 mg daily. ALLERGIES: LABETALOL. SOCIAL HISTORY: The patient has been a resident of [facility] for the last approximate 3 months. No history of tobacco or alcohol use. Her daughter Ernestine is her power of document review attorney. FAMILY HISTORY: Her parents had a history of CHF, diabetes, and coronary artery disease. REVIEW OF SYSTEMS: GENERAL: Denies fatigue. Reports that her appetite is better since moving to the assisted living and having better food options. No recent changes in weight. No fever, chills, or night sweats. HEENT: No changes in vision or hearing. No headaches. No sinus congestion. RESPIRATORY: Reports that she gets short of breath walking from her room to the dining room, but she is able to make it okay with her walker. Denies PATIENT'S NAME: IZABEL PINTO [facility] AGE: 77 Y [address] ROOM: [id number] [place] [id number] LOCATION: GPCU ADMIT DATE: 01/19/2017 Consultation DISCHARGE DATE: 01/23/2017 FAMILY PHYSICIAN: Richard Garcia MD ATTENDING PHYSICIAN: Sanjuana Abraham. No sputum production. CARDIOVASCULAR: The patient reports that she has difficulty sleeping at night due to feeling short of breath. Denies chest pain, pressure, or palpitations. No lower extremity edema. GASTROINTESTINAL: Denies nausea, vomiting, diarrhea, or constipation. No difficulties chewing or swallowing. GENITOURINARY: Denies dysuria. MUSCULOSKELETAL: Denies any joint swelling or back pain. Daughter reports that she has frequent falls at the assisted living facility. NEUROLOGICAL: No dizziness, syncope, or seizures. INTEGUMENTARY: No rashes or open areas. PSYCHIATRIC: Denies feeling overly depressed or anxious. Does use p.r.n. Ativan at times at [facility]. Denies hallucinations. PHYSICAL EXAMINATION: VITAL SIGNS: Blood pressure 112/54, heart rate 58, temperature 97.9, respirations 16, and O2 saturation is 92% on room air. GENERAL: An alert and, for the most part, oriented, obese, elderly, white female who is sitting up in a recliner. Does not appear to be in any acute distress. She is involved in the conversation most of the time, but does lose track at times. HEENT: Normocephalic, atraumatic. Pupils are equal and reactive to light. Sclerae are nonicteric. Conjunctivae are pink. Tongue and mucous membranes are moist and pink. Dentition is adequate. CARDIOVASCULAR: Heart tones regular rate and rhythm. She does have a murmur. RESPIRATORY: Respirations are regular and nonlabored. Lung sounds are clear to auscultation bilaterally. Not able to hear any rales, rhonchi, or wheezes. GASTROINTESTINAL: Abdomen is obese, soft, and nontender. Bowel sounds are present. MUSCULOSKELETAL: No significant joint deformities. Peripheral pulses are 1+ bilaterally. There is no clubbing, cyanosis, or edema. SKIN: Warm and dry. No unusual lesions or rashes. NEUROLOGICAL: Grossly intact. MENTAL STATUS: Unremarkable. IMPRESSION AND PLAN: 1. Dyspnea on exertion. Given her multivalvular disease, Cardio is working to optimize her medications. 2. Dementia. The patient's daughter has questions in regard to her safety at [facility] given her dementia. Discussed this at length and encouraged her to visit with the staff at [facility] to make sure they feel as though she is safe there. Discussed the fact that she is not wandering, and this has not been a problem for her. Thus, [facility] is a reasonable place to live at this time. 3. Code status. The patient is a do not resuscitate. She does have power of PATIENT'S NAME: BLAIRIZABEL [facility] AGE: 77 Y [address] ROOM: [address] [place], [place] [address] LOCATION: GPCU ADMIT DATE: 01/19/2017 Consultation DISCHARGE DATE: 01/23/2017 FAMILY PHYSICIAN: Richard Garcia MD ATTENDING PHYSICIAN: Sanjuana Abraham document review attorney paperwork on her chart. I met with the patient and her daughter, Ernestine ARAGON, and introduced the role of palliative care. Discussed palliative care for symptom management, chronic disease management, and ongoing education as well as goals of care conversation throughout the disease process. Following this, the patient's daughter asked about hospice services. I spent quite a bit of time discussing with her the difference between palliative care and hospice, provided education on when hospice would be appropriate during the patient's, in our best guess, last 6 months when her symptoms become more out of control and when she has recurrent hospital admissions, etc. At this point, I do not feel as though the patient is appropriate for hospice, but is definitely appropriate for ongoing palliative care services and told daughter that with palliative care services, we could continue to monitor her for hospice eligibility, and I do encourage her to use this when it is appropriate. I answered family's questions to their satisfaction. We will plan to follow up with the patient at [facility] in approximately one week on an outpatient basis. At this point, daughter states the primary goal is for the patient to live in an environment that is safe as her dementia and heart disease progress. Total visit was 35 minutes, greater than 50% of this time was spent in providing education and counseling. Thank you for allowing me to assist this patient and family. RUSS FINCH NP FOR MD DARLENE OROURKE/modl /[id number] d: 01/24/171914 t: 02/01/1707, CONSULTATION REPORT
--- NOTE | ~2017-01-19 | DS ---
PATIENT'S NAME: IZABEL PINTO [facility] AGE: 77 Y [address] ROOM: [address] [place], [place] [address] LOCATION: GPCU ADMIT DATE: 01/19/2017 Discharge Summary DISCHARGE DATE: 01/23/2017 FAMILY PHYSICIAN: Richard Garcia MD ATTENDING PHYSICIAN: Sanjuana Abraham ADMITTING DIAGNOSIS: Acute diastolic decompensated heart failure. DISCHARGE DIAGNOSIS: Acute diastolic decompensated heart failure, improved. PROCEDURES: Coronary angiogram on January 20, 2017. CONSULTATION: Inkjet Operator. HISTORY OF PRESENT ILLNESS: The patient is a 77-year-old female with past medical history of diastolic heart failure, severe aortic stenosis, left ventricular obstruction, recent history of GI bleed, dementia, and diabetes mellitus type 2, who presents to our hospital initially from [facility] with shortness of breath. The patient was assessed in the emergency department and was found to have CHF with chest x-ray showing pulmonary edema and elevated BNP. The patient was given IV Lasix and was admitted for further workup. HOSPITAL COURSE: The patient was admitted and was started on low-dose IV Lasix with adequate improvement. Aggressive diuretic was not used as the patient has left ventricular outflow tract obstruction, which puts the patient's risk for hypotension as the patient is preload dependent. The patient was started on beta-eliseo. The patient's Lopressor was increased from 25 b.i.d. to 62.5 b.i.d. with improvement of symptoms. The patient was seen by Dr. Cool, hogshead inspector, and had a coronary angiogram done on January 20, 2017. Shows nonobstructive coronary artery disease with aortic stenosis. The patient also had echocardiogram, which showed severe aortic stenosis, prcmxftw-er-kytntv MR, and pulmonary hypertension with elevated RVSP. The patient was started on afterload reduction on lisinopril. The patient was observed with medication of Lopressor and lisinopril with adequate improvement of symptoms and also blood pressure. The patient's home medication of diuretics of spironolactone was discontinued. The patient was discharged in stable condition. Follow up with her fpc and palliative care. The patient has also history of paroxysmal AFib, not on anticoagulation due to recent GI bleed and fall. CONDITION: Stable. DISPOSITION: retirement. PATIENT'S NAME: IZABEL PINTO [facility] AGE: 77 Y [address] ROOM: [facility] [place], [place] [address] LOCATION: GPCU ADMIT DATE: 01/19/2017 Discharge Summary DISCHARGE DATE: 01/23/2017 FAMILY PHYSICIAN: Richard Garcia MD ATTENDING PHYSICIAN: Sanjuana Abraham DISCHARGE MEDICATION: See MAR. DISCHARGE INSTRUCTION: Discussed about low-salt diet and to adhere to low- salt diet. RECOMMENDATIONS: Low-salt diet. FOLLOWUP: The patient to follow up with Dr. Cool in 2 weeks and primary care physician in 1 week. PHYSICAL EXAMINATION: VITAL SIGNS: Stable. Temperature 98.2, blood pressure 112/54, pulse is 69, respiratory rate 18, saturating 94% on room air. GENERAL APPEARANCE: The patient is alert and awake. HEAD: Normocephalic, atraumatic. EYES: Extraocular muscle intact. CHEST: Clear to auscultation bilaterally. HEART: Grade 2 systolic murmur heard in the right second intercostal. ABDOMEN: Soft, nontender, and nondistended. Bowel sounds are present. EXTREMITIES: No edema. ENVIRONMENTAL SERVICES MANAGER: The patient is alert and oriented x2. Greater than 30 minutes was spent on discharge planning. MD KHANH GRAFF/josie /[id number] d: 01/24/17 0639 t: 01/31/17 0614, DISCHARGE SUMMARY
--- NOTE | ~2017-01-19 | ER ---
PATIENT'S NAME: IZABEL PINTO [facility] AGE: 76 Y [address] ROOM: [address] [place], [place] [address] LOCATION: GPCU ADMIT DATE: 01/19/2017 ER/Outpatient Report DISCHARGE DATE: FAMILY PHYSICIAN: TATUM MONCADA MD ATTENDING PHYSICIAN: Sanjuana ABRAHAM This is an addendum to Dr. Zaidi's dictation. Please see his dictation for chief complaint, history of present illness, past medical history, past surgical history, social history, medications, and allergies. HISTORY OF PRESENT ILLNESS: The patient was noted to have shortness of breath last night at approximately 2 o'clock. Oxygen saturations initially upon EMS arrival was 58%. She was blue. She was having acute respiratory distress. The patient was given a breathing treatment and transferred to the hospital. She was initially seen and evaluated by Dr. Zaidi. Please see his dictation. Transfer of care was made to myself at shift change. I was left to followup with laboratory analysis and direct treatment and management of the patient's care. The patient's results were obtained. LABORATORY DATA AND X-RAYS: CBC: White blood cell count 14.0, otherwise normal. The arterial blood gas; 7.31/50/93/25/-1.6. Lactate is 2.2. Coags are normal. CMP is unremarkable, except for a glucose of 212. LFTs normal. Cardiac enzymes normal. CRP was less than 0.29. EKG was obtained, reviewed by myself, shows sinus tachycardia with a rate of 107, normal axis, normal interval. No ST elevation. There is ST depression in V3 through V6 as well as I and aVL. There is no significant change from 12/05/2016. CT scan of the brain was obtained and was negative for any acute process. proBNP was 2581. Procalcitonin was less than 0.05. D- dimer was 1.32. CT scan of the chest was obtained. There was no evidence of PE identified. There was mild cardiomegaly with interstitial pulmonary edema. There were bilateral ground-glass opacities. There was small pericardial and bilateral pleural effusions. There was mild lymphadenopathy. IMPRESSION: 1. Acute exacerbation of diastolic congestive heart failure. 2. Acute exacerbation of chronic obstructive pulmonary disease. 3. Bilateral pleural effusions. 4. Leukocytosis. 5. Initial visit. EMERGENCY DEPARTMENT COURSE: The patient was brought back to the examination room. Seen and evaluated by Dr. Zaidi. Transfer of care was made. I have discussed the case with Dr. Abraham, who is on-call for the Hospitalist Service. He has seen and evaluated PATIENT'S NAME: IZABEL PINTO [facility] AGE: 76 Y [address] ROOM: [place] [address] LOCATION: [facility] ADMIT DATE: 01/19/2017 ER/Outpatient Report DISCHARGE DATE: FAMILY PHYSICIAN: TATUM MONCADA MD ATTENDING PHYSICIAN: Sanjuana ABRAHAM the patient. He does agree to accept the patient for further evaluation, treatment, and management. We have contacted the daughter and updated her. DISPOSITION: The patient was admitted under the care of Hospitalist Service and Dr. Abraham in stable condition. DO JOSE RAMON GARCÍA/modl /[id number] d: 01/19/17 1119 t: 01/23/172042, OUTPATIENT REPORT
--- NOTE | ~2017-01-19 | HP ---
PATIENT'S NAME: IZABEL PINTO [facility] AGE: 76 Y [address] ROOM: [address] [place], [place] [address] [facility] ADMIT DATE: 01/19/2017 History & Physical DISCHARGE DATE: FAMILY PHYSICIAN: TATUM MONCADA MD ATTENDING PHYSICIAN: Sanjuana JAIME DATE OF SERVICE: CHIEF COMPLAINT: Acute hypoxic respiratory failure. HISTORY OF PRESENT ILLNESS: The patient is a 76-year-old female with past medical history of diastolic heart failure, aortic stenosis - severe, left ventricular obstructive tract, and recent GI bleed, who presents here from [facility] with shortness of breath. The patient reports that around 3:00 a.m. this morning, she felt short of breath. EMS was called from the [facility] living. The patient's oxygen saturation was found to be in the 60s and also noted to be cyanotic. The patient was brought into our emergency department. The patient was placed initially on a non-rebreather, and brought to our emergency department for further evaluation. In the emergency department, the patient was noted to have a chest x-ray finding consistent with heart failure, however, D-dimer was also elevated, and a CT chest with contrast was done which shows no signs of PE, however, shows cardiomegaly and findings of heart failure. The patient was given breathing treatment and was given Lasix IV with improvement of symptoms. The patient currently denies any chest pain, worsening of shortness of breath, abdominal pain, nausea, vomiting, productive cough, fever, or chills. The patient reports that this symptom has suddenly happened and denies any association of chest pain, productive cough, fever and chills, or pleuritic pain with her symptoms. Of note, the patient has mild dementia and lives in an assisted living. The patient's last admission to our hospital was on 12/05/2016 and discharged on 12/08/2016, after the patient was admitted with GI bleed. Her admission hemoglobin was 5.8. The patient was on Xarelto and aspirin for her paroxysmal atrial fibrillation. EGD was done which shows duodenitis. The patient was discharged to home without Xarelto due to bleeding risks. The patient also has multiple falls recently and has had a fall a few days ago, and CT head was done in our emergency department which shows negative head bleed. PAST MEDICAL HISTORY: 1. Hypothyroidism. 2. Diabetes mellitus. PATIENT'S NAME: ZOEY PINTOEA Lázaro [facility] AGE: 76 Y [address] ROOM: [place] [address] LOCATION: [facility] ADMIT DATE: 01/19/2017 History & Physical DISCHARGE DATE: FAMILY PHYSICIAN: TATUM MONCADA MD ATTENDING PHYSICIAN: Sanjuana JAIME 3. Chronic diastolic heart failure. 4. Dementia. 5. COPD. 6. Depression. 7. GERD. 8. Duodenitis. 9. Paroxysmal atrial fibrillation. 10. Left ventricular outflow tract obstruction. 11. Aortic stenosis. 12. Diastolic heart failure. PAST SURGICAL HISTORY: Cholecystectomy and left hip repair. FAMILY HISTORY: The patient does not remember her family history, and thinks her parents were healthy. SOCIAL HISTORY: The patient lives in assisted living. The patient has dementia, and denies history of smoking or drinking. MEDICATIONS: Currently being reconciled. REVIEW OF SYSTEMS: All systems have been reviewed and are negative for what I mentioned in the HPI. PHYSICAL EXAMINATION: VITAL SIGNS: Temperature 97.5, blood pressure 182/86, heart rate of 110, respiratory rate of 24, and oxygen saturation of 95% on 2 L. HEENT: Head; normocephalic. The patient has a resolving bruise on the left forehead. Eyes; extraocular muscles intact. Sclerae nonicteric. Nose; no nasal discharge. Ears; no ear discharge. Mouth; moist oral mucosa. NECK: Mild JVD. CHEST: Clear to auscultation bilaterally. Bibasilar rales. No wheezing or rhonchi noted. The patient is mildly tachypneic with respiratory rate in the 22 to 24. HEART: Regular rate and rhythm. The patient has grade 2 systolic murmur heard on the right second intercostal. ABDOMEN: Soft, nontender, and nondistended. Bowel sounds present. MUSCULOSKELETAL: Range of motion intact. No obvious joint effusion noted. [employer] OFFICIAL: The patient is alert and oriented x3 with cues. Motor and sensory grossly intact. PATIENT'S NAME: IZABEL PINTO [facility] AGE: 76 Y [address] ROOM: [place] [address] [facility] ADMIT DATE: 01/19/2017 History & Physical DISCHARGE DATE: FAMILY PHYSICIAN: TATUM MONCADA MD ATTENDING PHYSICIAN: Sanjuana JAIME SKIN: Warm to touch. LABORATORY DATA AND IMAGING STUDIES: ABG shows a pH of 7.31, pCO2 of 50, and pO2 of 93. Bicarbonate of 25.2. Lactate of 2.2. Troponin is negative x1. BNP of 2551. White blood cell count of 14, hemoglobin 13, and platelets of 297,000. BUN 13, creatinine 0.9, sodium of 142, potassium of 3.8, CO2 of 24, and glucose of 212. INR of 0.98 and PT of 10.3. CT chest with PE protocol shows no PE, but shows in-stent edema and mild cardiomegaly. Chest x-ray shows cardiac enlargement with vascular congestion and interstitial edema. EKG shows sinus tachycardia with LVH with nonspecific EKG change in contralateral. ASSESSMENT AND PLAN: 1. Acute hypoxic respiratory failure. Etiology is most likely secondary to decompensated diastolic heart failure with component of aortic stenosis and left ventricular outflow tract obstruction. The patient is known to have aortic stenosis and left ventricular outflow tract obstruction. The patient's echocardiogram on 12/13/2016 shows these findings. The patient has received dose of Lasix here 20 mg IV and breathing treatment with somewhat improvement of symptoms. However, since the patient has severe aortic stenosis and left ventricular outflow obstruction, we will diurese the patient very carefully as the patient is also preload dependent. We will give another one dose of 20 mg IV Lasix. We will hold the patient's spironolactone. The patient is tachycardic currently in 110 with a history of left ventricular outflow tract obstruction, would want heart rate to be lower than that. The patient is currently at home 25 mg of Lopressor b.i.d. and we will increase it to 50 b.i.d. We will follow the patient closely. We will also avoid vasodilators and high dose of diuretic treatment. 2. Decompensated chronic diastolic heart failure. Please see problem #1. 3. Severe aortic stenosis. To use diuretics with caution. 4. Chronic obstructive pulmonary disease, stable. Continue bronchodilator as needed. We will try to avoid aggressive bronchodilators as that might put the patient to have worsening of tachycardia. 5. Diabetes mellitus, type 2. We will hold metformin as the patient has PATIENT'S NAME: IZABEL PINTO [facility] AGE: 76 Y [address] ROOM: [facility] [place], [place] [address] LOCATION: [facility] ADMIT DATE: 01/19/2017 History & Physical DISCHARGE DATE: FAMILY PHYSICIAN: TATUM MONCADA MD ATTENDING PHYSICIAN: Sanjuana JAIME. We will start the patient on SSI with Accu-Chek. 6. Paroxysmal atrial fibrillation. The patient is not on anticoagulation as the patient had severe gastrointestinal bleed on her last admission, and also has history of multiple falls. The patient's anticoagulation was discontinued on her last admission. We will continue to hold anticoagulation. 7. Duodenitis. Last esophagogastroduodenoscopy shows ulcerative duodenitis. Currently, the patient is on Protonix. We will continue Protonix 40 mg b.i.d. 8. Hypothyroidism. Continue Synthroid. 9. Depression. Continue Zoloft. 10. Dementia, ongoing. Greater than 70 minutes were spent on patient's care. We will admit the patient for acute hypoxic respiratory failure. Code status discussed with the patient. The patient is a DNR. Try to contact Yu over the phone. Unable to leave a message for her because her voice mail is not set up to take a message. We will try to contact at a later time. Case was discussed with Dr. Nichols. We will admit the patient for acute hypoxic respiratory failure. The patient was also seen by Dr. Cool in the past. We will try to discuss the case with Dr. Cool. Greater than 50% of time was spent on direct patient's care and chart evaluation. MD KHANH GRAFF/josie /[id number] D: 240 T: HISTORY & PHYSICAL
--- NOTE | ~2017-01-19 | ER ---
[facility] 76 [facility] [address] ROOM: [place] [address] LOCATION: [facility] ADMIT DATE: 01/19/2017 ER/Outpatient Report DISCHARGE DATE: FAMILY PHYSICIAN: TATUM MONCADA MD ATTENDING PHYSICIAN: Sanjuana JAIME CHIEF COMPLAINT: Altered mental status and hypoxia. HISTORY OF PRESENT ILLNESS: The patient arrives by ambulance for evaluation of severe hypoxia and confusion. The patient around 0230 hours began to feel agitated and the facility staff noted that she did not look like her normal agitated self. They withheld her typical Ativan. She became cyanotic in color by report. EMS report saturations on room air were at the 65% to 68% range upon arrival. She received steroids and two breathing treatments prior to arrival in the emergency department in addition to supplemental oxygen. She has significant improvement in her oxygen saturations with supplemental O2 at that time. It is unclear of her baseline mental status, but she is able to answer questions in yes or no, but is confused. No other definite positive findings. PAST MEDICAL HISTORY: As documented in the record, from review of records and transfer paperwork was noted and reviewed by me. SOCIAL HISTORY: As documented in the record, from review of records and transfer paperwork was noted and reviewed by me. MEDICATIONS: As documented in the record, from review of records and transfer paperwork was noted and reviewed by me. ALLERGIES: DOCUMENTED IN THE RECORD, FROM REVIEW OF RECORDS AND TRANSFER PAPERWORK WAS NOTED AND REVIEWED BY ME. REVIEW OF SYSTEMS: Could not be completed as the patient is not alert enough. PHYSICAL EXAMINATION: VITAL SIGNS: Blood pressure 182/86, pulse is 110, respiratory rate is 24, temperature is 97.5, and SpO2 is 95% on 3 L simple facemask. GENERAL: An elderly frail-appearing female, recumbent on the exam table in moderate distress with no outward signs of pain with listlessness. GCS is 13. [facility] 76 Y [address] ROOM: [place] [address] LOCATION: [facility] ADMIT DATE: 01/19/2017 ER/Outpatient Report DISCHARGE DATE: FAMILY PHYSICIAN: TATUM MONCADA MD ATTENDING PHYSICIAN: Sanjuana JAIME Opens eyes to command and is confused. Follows commands in all extremities basically. No obvious asymmetry on exam. HEENT: Normocephalic and atraumatic other than some old bruising on the forehead, left-side. Eyes are PERRL. Oropharynx is slightly dry. NECK: Supple. Trachea is midline. CHEST: Heart is regular. Tachycardia with a systolic ejection murmur 4/6 that radiates to the carotids. The lungs are diminished bilaterally with retractions most prominently at supraclavicular. ABDOMEN: Soft, nontender, and nondistended. No rebound or guarding. SPINE: Back is normal to inspection. EXTREMITIES: Warm and well perfused. No obvious deformity or edema of the bilateral lower extremities is noted. Poorly demarcated. SKIN: Appears to be clean, dry, and grossly intact. LABORATORY DATA AND IMAGING STUDIES: Labs and X-rays: Chest x-ray and labs are pending. EKG reveals what appears to be sinus tachycardia, rate of approximately 110. No significant change compared to prior. Nonischemic. A head CT is also pending. IMPRESSION: Severe hypoxia, undetermined etiology. EMERGENCY DEPARTMENT COURSE: The patient was seen and evaluated. She was given more breathing treatments. Laboratories; a head CT was obtained. Based on her improvement with breathing treatments and positive-pressure ventilation, I do not believe that she is likely a PE at this time and thus have not performed a D-dimer on her. At 0600 hours, care was transferred to Dr. Nichols. PLAN: Plan is to follow up her labs and disposition accordingly into the hospital pending clinical course. At the time of hand off, I had been unable to contact any family. MD TAMIR ESCALANTE/josie /[id number] d: 01/19/172 t: 01/24/17 1224, OUTPATIENT REPORT
[~2017-01-19 04:48] MED LIST changes: -ARICEPT 5 MG5 MG PO; -ATIVAN 0.5MG0.5 MG PO; -LASIX20 MG PO; -LIPITOR80 MG PO; -PRINIVIL OR ZES10 MG PO; -PRINIVIL5 MG PO
[2017-01-19 05:15] LABS: BICARBONATE 25.2 mmol/L (18.0-23.0); LACTATE 2.2 mEq/L (0.50-1.60); PCO2 50 mmHg (35-45); PO2 93 mmHg (80-90)
[2017-01-19 05:42] LABS: BASOPHIL # 0.1 K/uL (0.0-0.2); BASOPHIL % 0.4 %; EOSINOPHIL # 0.2 K/uL (0.0-0.5); EOSINOPHIL % 1.3 %; HEMATOCRIT 41.8 % (33.0-46.0); HEMOGLOBIN 13.7 g/dL (10.0-15.0); IMMATURE GRANULOCYTE # 0.1 K/uL (0.0-0.3); IMMATURE GRANULOCYTE % 0.9 %; LYMPHOCYTE # 1.4 K/uL (0.8-4.0); LYMPHOCYTE % 9.6 %; MCH 28.8 pg (27.0-34.0); MCHC 32.8 gm/dL (32.0-36.5); MONOCYTE # 0.4 K/uL (0.0-1.0); MONOCYTE % 3.1 %; MPV 10.5 fl (9.4-12.4); NEUTROPHIL # (ANC) 11.8 K/uL (1.8-7.8); NEUTROPHIL % 84.7 %; NRBC % 0 /100WBC (0-0.00); PLATELET COUNT 297 K/uL (150-450); RBC 4.75 M/uL (3.50-5.50); RDW-CV 13.9 % (11.9-14.6)
[2017-01-19 05:54] LABS: INR - (THERAPEUTIC) 0.98 (0.92-1.07); PROTIME 10.3 SECONDS (9.8-11.4); PTT 26 SECONDS (25-32)
[2017-01-19 06:00] LABS: ALBUMIN 3.6 gm/dL (3.5-5.0); ALK PHOS 91 IU/L (33-138); ALT 19 IU/L (12-78); ANION GAP 12.8 (10.0-19.0); AST 22 IU/L (10-40); BLOOD UREA NITROGEN 13 mg/dL (6-24); CALCIUM 8.7 mg/dL (8.5-10.5); CHLORIDE 109 mMol/L (96-110); CO2 24 mMol/L (22-32); CREATININE 0.9 mg/dL (0.5-1.1); ESTIMATED GFR (MDRD EQUATION) > 60; POTASSIUM 3.8 mMol/L (3.7-5.1); SODIUM 142 mMol/L (135-145); TOTAL BILIRUBIN 0.4 mg/dL (0.0-1.5); TOTAL PROTEIN 6.8 g/dL (6.0-8.4)
[2017-01-19] MEDS ORDERED: ATIVAN 0.5MG0.5 MG PO (14:35)
[2017-01-19] MEDS ORDERED: ARICEPT 5 MG5 MG PO (14:35)
[2017-01-20 05:18] LABS: ALBUMIN 3.5 gm/dL (3.5-5.0); ANION GAP 11.1 (10.0-19.0); CALCIUM 9.2 mg/dL (8.5-10.5); CREATININE 0.8 mg/dL (0.5-1.1); MAGNESIUM 1.9 mg/dL (1.8-2.6); POTASSIUM 4.1 mMol/L (3.7-5.1); TOTAL PROTEIN 6.7 g/dL (6.0-8.4)
[2017-01-20 05:20] LABS: TOTAL BILIRUBIN 0.5 mg/dL (0.0-1.5)
[2017-01-22 05:41] LABS: ALBUMIN 3.2 gm/dL (3.5-5.0); CALCIUM 8.8 mg/dL (8.5-10.5); CREATININE 0.8 mg/dL (0.5-1.1); MAGNESIUM 1.9 mg/dL (1.8-2.6); PHOSPHORUS 3.2 mg/dL (2.5-4.9)
[2017-01-23] MEDS ORDERED: LIPITOR80 MG PO (18:41)
[2017-01-23] MEDS ORDERED: PRINIVIL OR ZES10 MG PO (18:44)
== END 2017-01-23 20:30 | disposition swing bed (61) | DRG 189 ==
LOC: GMED 04:48 → GPCU 08:43
PROVIDERS: Emergency Medicine; ADMIT Internal Medicine
DX: J96.01 Acute respiratory failure with hypoxia (principal); I50.33 Acute on chronic diastolic (congestive) heart failure; I48.0 Paroxysmal atrial fibrillation; F03.90 Unspecified dementia, unspecified severity, without behavioral disturbance, psychotic disturbance, mood disturbance, and anxiety; J44.9 Chronic obstructive pulmonary disease, unspecified; I11.0 Hypertensive heart disease with heart failure; E03.9 Hypothyroidism, unspecified; E11.9 Type 2 diabetes mellitus without complications; F32.9 Major depressive disorder, single episode, unspecified; I16.0 Hypertensive urgency; I34.0 Nonrheumatic mitral (valve) insufficiency; I35.0 Nonrheumatic aortic (valve) stenosis; I50.9 Heart failure, unspecified; K29.80 Duodenitis without bleeding; Q24.8 Other specified congenital malformations of heart; Z66 Do not resuscitate
CPT/HCPCS: A9270; J1644; J1650; J1940; J2250; J3010; J7060; Q9967

== ENCOUNTER → 2017-01-19 | Outpatient (CLI) | payer MEDICARE, OTHER | END | disposition disaster alternative care site (69) | LOC: GAMB 04:33 | DX: R06.02 Shortness of breath (principal); J44.9 Chronic obstructive pulmonary disease, unspecified; F03.90 Unspecified dementia, unspecified severity, without behavioral disturbance, psychotic disturbance, mood disturbance, and anxiety; Z79.84 Long term (current) use of oral hypoglycemic drugs; Z79.52 Long term (current) use of systemic steroids; Z79.82 Long term (current) use of aspirin; Z79.899 Other long term (current) drug therapy; Z88.8 Allergy status to other drugs, medicaments and biological substances | CPT/HCPCS: A0422; A0425; A0427; J2930 ==

== ENCOUNTER 2017-02-07 02:45 | Inpatient (IN) | payer MEDICARE, OTHER ==
[~2017-02-07] VITALS: Ht 165.1 cm; Wt 69.0 kg
--- NOTE | ~2017-02-07 | DS ---
[facility] 77 Y [address] ROOM: [place] [address] LOCATION: [facility] ADMIT DATE: 02/07/2017 Discharge Summary DISCHARGE DATE: 02/10/2017 FAMILY PHYSICIAN: Richard Garcia MD ATTENDING PHYSICIAN: Alvarez Das PRINCIPAL DIAGNOSES: 1. Acute decompensated diastolic congestive heart failure. 2. Acute respiratory failure with hypoxia. 3. Severe aortic stenosis. 4. Severe mitral regurgitation. 5. Paroxysmal atrial fibrillation. 6. Type 2 diabetes. HOSPITAL COURSE: This is a 77-year-old female with known history of diastolic CHF, severe aortic stenosis, severe mitral regurgitation, who presented with acute onset shortness of breath and was noted to be in acute decompensated diastolic CHF. The patient was treated with IV Lasix and management symptomatically and her symptoms improved in the following day 1 and day 2 of hospitalization. The patient currently is in no apparent respiratory distress, ambulating well, with no need for supplemental oxygenation. Volume status appears to be euvolemic. The patient is known to be frequently admitted to the hospital with similar presentations and the main reason for her decompensation continues to be her severe aortic stenosis and mitral regurgitation, but considering her comorbidities, she is not a good surgical candidate to address this surgically. In any case, we will resume the patient's home medications and continue with aggressive medical management and discharge her on p.o. Lasix as well as beta-eliseo therapy and afterload reduction and continue to monitor. The patient will follow up with her primary care physician in 1 week and will continue with her followup appointment with her music journalist as previously scheduled. PHYSICAL EXAMINATION: VITAL SIGNS: Today, the patient is awake, alert, and oriented x3, in no acute distress. CHEST: Clear to auscultation bilaterally. HEART: S1, S2. Regular rate and rhythm. ABDOMEN: Soft, nontender, and nondistended. EXTREMITIES: Without edema. NEUROLOGIC: Grossly nonfocal. DISPOSITION: Back to assisted living. MEDICATIONS: Per MAR. Less than 30 minutes were spent in discharge planning and facilitating. [facility] 77 Y [address] ROOM: [place] [address] LOCATION: [facility] ADMIT DATE: 02/07/2017 Discharge Summary DISCHARGE DATE: 02/10/2017 FAMILY PHYSICIAN: Richard Garcia MD ATTENDING PHYSICIAN: Alvarez Das MD MALIK MEEHAN/modl /[id number] d: 02/11/17 0120 t: 02/13/17 1426, DISCHARGE SUMMARY
--- NOTE | ~2017-02-07 | HP ---
PATIENT'S NAME: IZABEL PINTO [facility] AGE: 77 Y [address] ROOM: [id number] [place], [place] [address] [facility] AD[facility] DATE: 02/07/2017 History & Physical DISCHARGE DATE: FAMILY PHYSICIAN: TATUM MONCADA MD ATTENDING PHYSICIAN: COLIN BANGURA DATE OF SERVICE: CHIEF COMPLAINT: Shortness of breath. HISTORY OF PRESENT ILLNESS: This is a 77-year-old female, who is a snf resident. The story is that the patient says that she went to bed around 11:30 p.m. last night and then she experienced this shortness of breath, worse with exertion. Because of that, she told the snf staff and nursing staff called the ambulance. The patient was given some nebulization treatment and she felt much better, and then she was brought here for evaluation. The patient denies any chest pain or palpitation or headache or dizziness or fever or chills or any melena or hemoptysis or hematochezia or any other complaints. The patient denies any excessive water intake and denies any medication noncompliance and also denies any high intake of salty diet. The patient has COPD and has a daily productive cough, but she could not tell me what color is the phlegm. She states that the daily productive cough has not worsened and is about the same as usual. She also denies any recent long-distance travel or any recent sick contact. Reviewing her medical records, she was just here recently and discharged on January 23, 2017, for psfjk-tk-lwklyzu diastolic heart failure due to her severe aortic stenosis. At that time, she also had a cardiac catheterization performed on January 20, 2017, and the report showed nonobstructive CAD with severe pulmonary hypertension as well as severe aortic stenosis and also left ventricular outflow tract obstruction and cgxwvftz-bu-djkuyn calcification of the mitral valve and severe mitral regurgitation, as well as moderate mitral valve stenosis and vzle-yw-rwmolxvw tricuspid regurgitation. Her most recent echo was done on December 13, 2016, which showed the findings already mentioned before. On last admission, the patient was treated with IV Lasix gently due to her left ventricular outflow obstruction and severe aortic stenosis, and the patient improved. The patient was later discharged back to the snf with some adjustment to her home medications. REVIEW OF SYSTEMS: As mentioned in the history of present illness. All other systems were PATIENT'S NAME: IZABEL PINTO [facility] AGE: 77 Y [address] ROOM: [place] [id number] LOCATION: [facility]U ADMIT DATE: 02/07/2017 History & Physical DISCHARGE DATE: FAMILY PHYSICIAN: TATUM MONCADA MD ATTENDING PHYSICIAN: COLIN BANGURA reviewed and they were negative except for those mentioned in the history of present illness. PAST MEDICAL HISTORY: 1. Chronic diastolic heart failure, refer to the echo and cardiac cath as mentioned in the history of present illness for details. Her EF at that time was more than 75%, that is also on echo performed on December 13, 2016. 2. Severe aortic stenosis as mentioned before in the echo report. 3. Hypothyroidism. 4. Diabetes type 2. 5. Dementia. 6. COPD, not on home oxygen. 7. Depression. 8. Gastroesophageal reflux disease. 9. History of duodenitis with upper GI bleeding, currently resolved. 10. History of paroxysmal atrial fibrillation. 11. Left ventricular outflow tract obstruction as mentioned in the echo before. ALLERGIES: NONE. THIS IS ACCORDING TO THE PATIENT AND ALSO ACCORDING TO THE MEDICAL RECORDS IN [facility]. HOME MEDICATIONS: Currently, it is being reconciled. SOCIAL HISTORY: The patient says that she was a former cigarette smoker. She quit about 3 years ago. She used to smoke about 1 pack per day for many years. She denies any alcohol or any illegal drug use. FAMILY HISTORY: The patient could not remember much details about her father, but she states that her mother had diabetes type 2. PAST SURGICAL HISTORY: Status post cholecystectomy and status post left hip surgical repair in the past. PHYSICAL EXAMINATION: VITAL SIGNS: At the time of my dictation, temperature 98, blood pressure was 97/75, MAP of 70, respiration was 16, saturation was 96% on 2 L nasal cannula, and heart rate was 84. GENERAL APPEARANCE: Alert and oriented x3. Currently in no acute distress. HEENT: Pupils are equally round and reactive to light. Extraocular muscles PATIENT'S NAME: IZABEL PINTO [facility] AGE: 77 Y [address] ROOM: [place] [address] LOCATION: [facility]U ADMIT DATE: 02/07/2017 History & Physical DISCHARGE DATE: FAMILY PHYSICIAN: TATUM MONCADA MD ATTENDING PHYSICIAN: COLIN BANGURA. Anicteric sclerae. Nasal turbinates are normal bilaterally. Moist oral mucosa. NECK: Positive JVD. CARDIOVASCULAR: Regular rate and rhythm. Normal S1, S2. Has a loud murmur, it is about an intensity of 4. No rubs, no gallops. RESPIRATORY: Bibasilar crackles. No rales, no rhonchi, no wheezing, no crackles. ABDOMEN: Soft, nontender, nondistended, bowel sounds present, no mass. EXTREMITIES: No edema in the upper or lower extremities. NEUROLOGIC: Grossly nonfocal. SKIN: She has tinea corporis in the left lower extremity around her left anterior distal llanos in the anterior surface. LABORATORY DATA: Venous blood gas showed pH of 7.34, pCO2 of 53, bicarbonate 28.6, saturation 94%. Lactic acid 2.8. Troponin less than 0.04. CPK 50. ProBNP 3391. White blood cells 13.6, hemoglobin 13.2, hematocrit 40.8, platelets 296. Glucose 191. BUN 17, creatinine 0.9, sodium 141, potassium 3.9, chloride 107, CO2 of 24, calcium 8.6, total protein 6.5, albumin 3.5, AST 32, ALT 21, alkaline phosphatase 81, total bilirubin 0.3, magnesium 1.7. GFR more than 60. Anion gap 13.9. Urinalysis negative for UTI. CK-MB 1.0. Procalcitonin less than 0.05. IMAGING STUDIES: Chest x-ray on admission, the official report is pending. Based on my review, similar to the previous one, I could appreciate vascular congestion. EKG on admission shows sinus rhythm, heart rate at 76 beats per minute with MS of 164 milliseconds, QTc 456 milliseconds, QRS of 94 milliseconds. I do appreciate T-wave inversion in lead aVL, but compared to the prior EKG, this is chronic back on November 2016. Otherwise, unremarkable. EMERGENCY ROOM COURSE: No medications were given; however, the patient did get nebulization during the ambulance ride. ASSESSMENT AND PLAN: 1. Regarding her acute hypoxemic respiratory failure secondary to acute-on- chronic diastolic heart failure: Her blood pressure right now systolic is in the 97; therefore, I cannot give her any Lasix. In addition, she has severe aortic stenosis and also left ventricular outflow tract obstruction based on the previous echo; therefore, we have to be careful with the diuresis. Also, we have to avoid nitrates at all cost. The plan will be to give her 1 dose of IV albumin 25 g 25% to increase the intravascular volume, to raise the blood pressure temporary and then PATIENT'S NAME: IZABEL PINTO [facility] AGE: 77 Y [address] ROOM: [place] [address] [facility] AD[facility] DATE: 02/07/2017 History & Physical DISCHARGE DATE: FAMILY PHYSICIAN: TATUM MONCADA MD ATTENDING PHYSICIAN: COLIN BANGURA check the blood pressure after the IV albumin is given to see if the systolic blood pressure is more than 100. If that is the case, then we will give her some IV Lasix 20 mg to mobilize the fluid and to diurese her gently. Further plan will depend on clinical course. Continue oxygen nasal cannula to keep the saturation more than 90%. Strict in's and out's and daily weight and also aspiration precaution. She can have a cardiac diet. We will also put her fluid restriction to less than 1.2 L per day. I am not going to repeat echo given that she just had one recently in December of this year. Further plan will depend on clinical course. 2. Regarding her chronic obstructive pulmonary disease: Currently is not in exacerbation. Pneumonia less likely given that the patient is not having a productive cough at the moment. In fact, she states she has a chronic daily productive cough, which has not worsened. There is no fever. For now, I will not start any antibiotics or any steroids. I will continue the nebulization with Xopenex plus Atrovent nebulization and also Xopenex p.r.n. per RT for RSS. Further plan will depend on clinical course. 3. Regarding her history of duodenitis: Home medication currently is being reconciled. Currently, the patient denies any melena or hematemesis or hematochezia. Once the medication list is reconciled, then the medication can be addressed. 4. Regarding her history of paroxysmal atrial fibrillation: Currently is in sinus rhythm. Continue telemetry monitoring. Anticoagulation will be avoided due to her history of recent duodenitis with upper gastrointestinal bleeding. Also, the patient does not want to be on blood thinner due to the concern for recurrent gastrointestinal bleeding in the future. 5. Regarding her diabetes type 2: Currently, home medication is being reconciled. Once this reconciled, then the medication can be addressed. 6. Regarding her hypothyroidism: Continue her home medication. 7. Regarding her severe aortic stenosis and severe pulmonary hypertension and also left ventricular outflow tract obstruction: Refer to #1 for all the details. 8. She is a DNR, DNI. 9. Deep vein thrombosis prophylaxis: I will use Lovenox for now given that her kidney function is normal and currently duodenitis has resolved and there is no anemia on presentation. 10. In addition, for her tinea corporis in the left anterior llanos: I will prescribe her with topical ointment of clotrimazole topical application twice a day. Time spent in care on the day of admission 55 minutes, where 10 minutes was spent on chart review and the remainder of the time was spent on interview and physical examination and also on counseling. The counseling includes going on plan of care with the patient and also addressing all her questions and PATIENT'S NAME: IZABEL PINTO [facility] AGE: 77 Y [address] ROOM: [place] [address] [facility] ADMIT DATE: 02/07/2017 History & Physical DISCHARGE DATE: FAMILY PHYSICIAN: TATUM MONCADA MD ATTENDING PHYSICIAN: COLIN BANGURA concerns to her satisfaction. Further plan will depend on clinical course. COLIN BANGURA MD CC/modl /[id number] D: [id number] T: [id number] HISTORY & PHYSICAL
--- NOTE | ~2017-02-07 | ER ---
[facility] 77 Y [address] ROOM: [place] [address] LOCATION: [facility]PCU ADMIT DATE: 02/07/2017 ER/Outpatient Report DISCHARGE DATE: FAMILY PHYSICIAN: TATUM MONCADA MD ATTENDING PHYSICIAN: COLIN BANGURA TIME SEEN: The patient was seen at 0250 hours. CHIEF COMPLAINT: This is a 77-year-old female with multiple medical problems in with complaint of shortness of breath. HISTORY OF PRESENT ILLNESS: The patient reports that she has had a slight cough, productive of sputum that began yesterday. It got worse throughout the day yesterday and she became acutely short of breath last night, and called the ambulance and was transported here. PAST MEDICAL HISTORY: Significant for atrial fibrillation, aortic stenosis, congestive heart failure, cor-fvapsfi-nwlibvmio diabetes, COPD, mild dementia, hypothyroidism, and chronic respiratory failure. CURRENT MEDICATIONS: Please see list. REVIEW OF SYSTEMS: Otherwise negative. She was hospitalized recently. SOCIAL HISTORY: She is a nonsmoker. She lives in a usp. PHYSICAL EXAMINATION: GENERAL: This is an alert female in moderate respiratory distress. VITAL SIGNS: Stable. SKIN: Warm and dry. Color is normal. She was afebrile. HEAD, EARS, EYES, NOSE, AND THROAT: Normal. NECK: Supple. HEART: Had a regular rate and rhythm. She had a grade 3/6 holosystolic murmur. LUNGS: She had coarse rhonchi, audible bilaterally with rales audible in the right base. ABDOMEN: Soft and nontender. EXTREMITIES: Normal. [facility]GE[facility] 77 Y [address] ROOM: [address] [address] LOCATION: GPCU ADMIT DATE: 02/07/2017 ER/Outpatient Report DISCHARGE DATE: FAMILY PHYSICIAN: TATUM MONCADA MD ATTENDING PHYSICIAN: COLIN BANGURA NEUROLOGIC: Normal. The EMS report indicates that the patient had oxygen saturations of 65% on arrival. She improved en route with nebulized albuterol. LABORATORY DATA AND X-RAYS: Chest x-ray was obtained and revealed a right middle lobe infiltrate. EKG revealed normal sinus rhythm with nonspecific lateral ST abnormalities. BNP was elevated at 3391, procalcitonin was normal. Metabolic panel revealed an elevated blood glucose of 191, was otherwise negative. Troponin was negative. White count was slightly elevated at 13.6. Dr. Bangura was called, arrived promptly, evaluated the patient, and made arrangements to admit the patient. ASSESSMENT: 1. Right lower lobe pneumonia. 2. Congestive heart failure. PLAN: Admit to Dr. Bangura. MD JORGE BLACK/modl /[id number] d: 02/07/17 0559 t: 02/23/17 0549, OUTPATIENT REPORT
--- NOTE | ~2017-02-07 | PUL ---
PATIENT'S NAME: IZABEL PINTO [facility] AGE: 77 Y [address] ROOM: [place] [address] LOCATION: GPCU ADMIT DATE: 02/07/2017 Pulmonary DISCHARGE DATE: 02/10/2017 FAMILY PHYSICIAN: Richard Garcia MD ATTENDING PHYSICIAN: Alvarez Das NAME OF PROCEDURE: Overnight Pulse Oximetry DATE OF PROCEDURE: February 09 to February 10, 2017 REASON FOR PROCEDURE: Nocturnal hypoxemia RESULTS: The test was performed on room air. The total recording time was 9 hours, 14 minutes, 36 seconds. Highest pulse was 87 per minute, lowest pulse was 63 per minute, with a mean pulse was 73 per minute. Highest SpO2 was 96%, lowest SpO2 was 80%, with a mean SpO2 was 90.8%. The patient had significant nocturnal desaturations for greater than 5 minutes. The desaturation event index was 56.6 which is elevated. PHYSICIAN INTERPRETATION: The patient has evidence of significant nocturnal hypoxia and would qualify for supplemental oxygen as per Medicare criteria. However because of the severity of her nocturnal hypoxia with an elevated desaturation event index a sleep study is suggested at this time. MD ROGE GUEVARA/sushil /[id number] dtt: 02/16/17 1634 , MARGARET BRIZUELA dtd: 02/13/17 1349
[~2017-02-07 02:45] MED LIST changes: -LASIX20 MG PO; -PRINIVIL5 MG PO
[2017-02-07 03:08] LABS: BASOPHIL # 0.1 K/uL (0.0-0.2); BASOPHIL % 0.6 %; BICARBONATE 28.6 mmol/L (18.0-23.0); EOSINOPHIL # 0.3 K/uL (0.0-0.5); HEMATOCRIT 40.8 % (33.0-46.0); HEMOGLOBIN 13.2 g/dL (10.0-15.0); IMMATURE GRANULOCYTE # 0.1 K/uL (0.0-0.3); IMMATURE GRANULOCYTE % 0.5 %; LACTATE 2.8 mEq/L (0.50-1.60); LYMPHOCYTE # 1.1 K/uL (0.8-4.0); MCH 28.2 pg (27.0-34.0); MCHC 32.4 gm/dL (32.0-36.5); MCV 87.2 fl (83.0-98.0); MONOCYTE # 0.5 K/uL (0.0-1.0); MONOCYTE % 3.7 %; MPV 11.3 fl (9.4-12.4); NEUTROPHIL # (ANC) 11.6 K/uL (1.8-7.8); NEUTROPHIL % 85.2 %; NRBC % 0 /100WBC (0-0.00); PCO2 53 mmHg (35-45); PLATELET COUNT 296 K/uL (150-450); PO2 75 mmHg (80-90); RBC 4.68 M/uL (3.50-5.50); RDW-CV 13.6 % (11.9-14.6); WBC 13.6 K/uL (4.0-11.0)
[2017-02-07 03:21] LABS: PROTIME 10.5 SECONDS (9.8-11.4); PTT 25 SECONDS (25-32)
[2017-02-07 03:33] LABS: ALBUMIN 3.5 gm/dL (3.5-5.0); ALK PHOS 81 IU/L (33-138); ALT 21 IU/L (12-78); ANION GAP 13.9 (10.0-19.0); AST 32 IU/L (10-40); BLOOD UREA NITROGEN 17 mg/dL (6-24); CALCIUM 8.6 mg/dL (8.5-10.5); CHLORIDE 107 mMol/L (96-110); CO2 24 mMol/L (22-32); CPK 50 IU/L (21-215); CREATININE 0.9 mg/dL (0.5-1.1); MAGNESIUM 1.7 mg/dL (1.8-2.6); POTASSIUM 3.9 mMol/L (3.7-5.1); SODIUM 141 mMol/L (135-145); TOTAL PROTEIN 6.5 g/dL (6.0-8.4)
[2017-02-07 03:35] LABS: TOTAL BILIRUBIN 0.3 mg/dL (0.0-1.5)
[2017-02-07 04:13] LABS: BILIRUBIN URINE NEGATIVE (NEGATIVE); BLOOD URINE NEGATIVE /UL (NEGATIVE); COLOR URINE YELLOW (YELLOW); GLUCOSE URINE NEGATIVE (NEGATIVE); KETONE URINE NEGATIVE (NEGATIVE); LEUKOCYTES URINE NEGATIVE /UL (NEGATIVE); NITRITE URINE NEGATIVE (NEGATIVE); PROTEIN URINE 100 mg/dL (NEGATIVE); SPEC GRAVITY URINE 1.015 (1.003-1.035); TURBIDITY URINE CLEAR (CLEAR); UROBILINOGEN URINE NORMAL (NORMAL)
[2017-02-07 04:35] LABS: BACTERIA URINE NEGATIVE (NEGATIVE); EPITHELIAL URINE 0-2 #/HPF (NEGATIVE); RBC URINE NEGATIVE #/HPF (NEGATIVE); WBC URINE NEGATIVE #/HPF (NEGATIVE)
[2017-02-07] MEDS ORDERED: LASIX20 MG PO (05:47)
[2017-02-07] MEDS ORDERED: PRINIVIL5 MG PO (05:50)
--- NOTE | 2017-02-07 05:52 | NUR ---
Pt is a 77 yr old female admitted by Hospitalist for pneumonia/resp failure/CHF. Resides at [facility]. Woke up at 0130 today with difficulty breathing, waited around 30 min to notify medical staff. sats @ 70% when EMs arrived. Duoneb, albuterol, and oxygen applied. In ER oxygen titrated from 6L to 2L with 96% O2 saturation. Allergy to Labetolol. Hx of dementia, diabetes, afib.
[2017-02-07 09:37] LABS: HEMATOCRIT 37.8 % (33.0-46.0); HEMOGLOBIN 12.2 g/dL (10.0-15.0); MCHC 32.3 gm/dL (32.0-36.5); MCV 86.9 fl (83.0-98.0); MPV 11.2 fl (9.4-12.4); RBC 4.35 M/uL (3.50-5.50); RDW-CV 13.5 % (11.9-14.6); WBC 11.5 K/uL (4.0-11.0)
[2017-02-07 10:00] LABS: ANION GAP 12.7 (10.0-19.0); CALCIUM 8.8 mg/dL (8.5-10.5); CREATININE 0.9 mg/dL (0.5-1.1); MAGNESIUM 2.3 mg/dL (1.8-2.6); POTASSIUM 3.7 mMol/L (3.7-5.1)
--- NOTE | 2017-02-07 12:10 | NUR ---
Zara bird. Patient is sleeping. Will let her rest. She lives at [facility].
--- NOTE | 2017-02-07 17:01 | NUR ---
Significant Event: RECEIVED IV ALBUMIN AND IV MAG THIS AM. IV LASIX GIVEN X2 LAST AT 1400. REMAINS ON 1.2 LITER FLUID RESTRICTION WITH 368ML IN. DENIES PAIN WHEN ASKED. AMBULATES TO BATHROOM WITH 1 ASSIST, USE OF WALKER/GAIT BELT. O2 AT 2L/NC, SATS 96%. ACCUCHECKS 136, 171, 130. BP'S 129/61, 102/52, 116/56. PLEASANT AND COOPERATIVE WITH CARES. Follow up:
--- NOTE | 2017-02-08 05:01 | NUR ---
Significant Event: A/O x3, forgetful at times. Afebrile. VSS on 1L. LS clear/dim. SBP 120-160s. HR 60-70s. Inc vd x2. Turn q 2 hours. Bed alarm on. Follow up: continue to monitor per plan of care
[2017-02-08 05:05] LABS: ANION GAP 11.6 (10.0-19.0); CALCIUM 8.9 mg/dL (8.5-10.5); CREATININE 0.7 mg/dL (0.5-1.1); POTASSIUM 3.6 mMol/L (3.7-5.1)
--- NOTE | 2017-02-08 11:43 | NUR ---
Introduced self and role of care management to patient. She lives at [facility] in [place]. She states that she is able to do all her own ADL's. But if she needs assistance the staff helps. She states that she uses a walker, eats in the main dining room and the staff administer her medications. She plans on returning to [facility] on discharge. She denies any needs at this time. Will continue to follow.
--- NOTE | 2017-02-08 17:12 | NUR ---
Significant Event: patient alert and oriented x3, forgetful at times. ambulated in palm and up to chair with assist. on room air O2 sats 90-93%. received routine tylenol at 1400, c/o headache, with relief. accuchecks 136, 260, 117. HR 60-70, SBP 110-160. remains on 1.2 liter fluid restriction. Follow up: daily weight, isolation discontinued.
[2017-02-09 03:55] LABS: ANION GAP 10.6 (10.0-19.0); CALCIUM 8.9 mg/dL (8.5-10.5); CREATININE 0.7 mg/dL (0.5-1.1)
[2017-02-09 03:56] LABS: POTASSIUM 3.6 mMol/L (3.7-5.1)
--- NOTE | 2017-02-09 04:10 | NUR ---
Significant Event:pt alert however confused at times. easily reorients. pt pleasant with staff and cares. denies pain when asked. iv to left wrist saline locked. vss during shift. incontient of urine during night. turn q2h. pt uses call light approp.bed alarm in place at all times. pt up with 1-2 assist walker gb. takes medication whole wtih no complications. lung sounds clear/ diminished in the bases. pt on 1l 02 per nasal cannula at night. sats remain above 90% at this time. pt on fluid restriction 1200 ml. Follow up:
--- NOTE | 2017-02-10 04:12 | NUR ---
Significnat event: Alert to self and place but unaware of time. Up with 1 assist and walker. Incon of bladder at times. Turn from side to side every 2 hours. Overnight trendox in progress. [facility].
--- NOTE | 2017-02-10 18:45 | NUR ---
DISCHARGE: ALERT D/O TO TIME AND PLACE. PLEASANTLY FORGETFUL. UP WITH MINIMAL ASSIST, GB AND WALKER. IV REMOVED BY PATIENT. DENIES PAIN. FAMILY AT BEDSIDE. DISCHARGE INSTRUCTIONS REVIEWED. NO FURTHER QUESTIONS. COURTESY PACKET SENT TO [place] WITH FAMILY. TAKEN TO [facility] EN[facility] BY WHEELCHAIR @ 1937 BY DINO.
== END 2017-02-10 15:15 | disposition disaster alternative care site (69) | DRG 291 ==
LOC: GMED 02:45 → GPCU 04:32
PROVIDERS: Emergency Medicine; Nurse Practitioner Family; ADMIT Internal Medicine
DX: I50.33 Acute on chronic diastolic (congestive) heart failure (principal); J96.01 Acute respiratory failure with hypoxia; E87.5 Hyperkalemia; J44.1 Chronic obstructive pulmonary disease with (acute) exacerbation; B35.4 Tinea corporis; I48.0 Paroxysmal atrial fibrillation; Q24.8 Other specified congenital malformations of heart; E03.9 Hypothyroidism, unspecified; E11.9 Type 2 diabetes mellitus without complications; Z79.4 Long term (current) use of insulin; F32.9 Major depressive disorder, single episode, unspecified; I35.0 Nonrheumatic aortic (valve) stenosis; Z79.01 Long term (current) use of anticoagulants; Z66 Do not resuscitate; Z87.19 Personal history of other diseases of the digestive system
CPT/HCPCS: G0237; G0424; J1650; J1940; J3475; J7050; P9047

== ENCOUNTER → 2017-02-07 | Outpatient (CLI) | payer MEDICARE, OTHER ==
[~2017-02-07] MED LIST changes: +ARICEPT 5 MG5 MG PO; +ATIVAN 0.5MG0.5 MG PO; +LASIX20 MG PO; +LIPITOR80 MG PO; +PRINIVIL OR ZES10 MG PO; +PRINIVIL5 MG PO
== END | disposition disaster alternative care site (69) ==
LOC: GAMB 02:06
DX: R06.02 Shortness of breath (principal); F32.9 Major depressive disorder, single episode, unspecified; E03.9 Hypothyroidism, unspecified; E11.9 Type 2 diabetes mellitus without complications; I48.2 Chronic atrial fibrillation; I50.9 Heart failure, unspecified; J44.9 Chronic obstructive pulmonary disease, unspecified; J45.909 Unspecified asthma, uncomplicated; Z79.82 Long term (current) use of aspirin; Z79.899 Other long term (current) drug therapy
CPT/HCPCS: A0422; A0425; A0427

== ENCOUNTER 2017-02-15 07:49 | Emergency (ER) | payer MEDICARE, OTHER ==
--- NOTE | ~2017-02-15 | ER ---
[facility] AGE[facility] 77 Y [address] ROOM: [place] [address] LOCATION: ED ADMIT DATE: 02/15/2017 ER/Outpatient Report DISCHARGE DATE: 02/15/2017 FAMILY PHYSICIAN: Richard Garcia MD ATTENDING PHYSICIAN: Richard Nichols Time of Arrival: 0749 hours. Time of Evaluation: 0749 hours. CHIEF COMPLAINT: Shortness of breath. HISTORY OF PRESENT ILLNESS: The patient is a 77-year-old female who presents to the emergency department today with chief complaint shortness of breath. The patient does have a history of severe aortic stenosis as well as severe mitral stenosis. She has a history of recurrent congestive heart failure. The patient does have a history of dementia as well. She reports she just woke up this morning, feeling short of breath. She denies any fevers or chills. No nausea or vomiting. No diarrhea or constipation. Denies any other pain at this time. PAST MEDICAL HISTORY: Atrial fibrillation, osteoarthritis, congestive heart failure, COPD, hypertension, asthma, dementia, dyslipidemia, hypothyroidism, hypermagnesemia, depression, severe aortic stenosis, severe mitral regurgitation. PAST SURGICAL HISTORY: Cholecystectomy and left hip. FAMILY HISTORY: Mother with diabetes. SOCIAL HISTORY: The patient is a former smoker, quit 3 years ago. Smoked a pack per day for many years. Denies any alcohol or illicit drug use. ALLERGIES: LABETALOL. MEDICATIONS: Please see list. PRIMARY CARE DOCTOR: Richard Garcia MD. PATIENT'S NAME: [facility] AGE: 77 Y [address] ROOM: [place] [address] LOCATION: ED ADMIT DATE: 02/15/2017 ER/Outpatient Report DISCHARGE DATE: 02/15/2017 FAMILY PHYSICIAN: Richard Garcia MD ATTENDING PHYSICIAN: Richard Nichols REVIEW OF SYSTEMS: All systems are reviewed by myself and negative with the exception of those discussed in HPI and past medical history. PHYSICAL EXAMINATION: VITAL SIGNS: Weight 67.1 kg. Blood pressure 157/72, pulse 78, respiratory rate 18, temperature 98.1, oxygen saturation 92% on 3 L nasal cannula. GENERAL: The patient is a 77-year-old female who appears of stated age, in no acute distress at this time. HEENT: Head: Normocephalic, atraumatic. Pupils are equal, round, and reactive to light. NECK: Supple. There is no nuchal rigidity. CARDIOVASCULAR: Regular rate and rhythm. Positive murmur. LUNGS: Clear to auscultation bilaterally. No wheezes, rales, or rhonchi. ABDOMEN: Soft, nontender, and nondistended. No rebound, rigidity, or guarding. MUSCULOSKELETAL: The patient moves all 4 extremities. SKIN: Warm and dry. LABORATORY DATA AND X-RAYS: EKG is obtained, interpreted by myself at 0820 hours show sinus rhythm with a rate of 74, normal axis, normal interval. No ST elevation or ST depression. There is ST depression in V4, V5, V6. There is T-wave inversion in I and aVL. This is no significant change from 02/07/2017, 01/19/2017, or 12/05/2016. Chest x-ray is improved. Venous blood gas 7.41/45/95/30/3.3 lactate is normal. CBC is normal except for white blood cell count 11.2. Coags are normal. D-dimer 1.21. CMP is unremarkable. LFTs are normal. Magnesium is 1.7. Cardiac enzymes are normal. Procalcitonin is less than 0.05. CT scan of the chest was obtained. I have discussed results with the radiologist shows bilateral pleural effusions, improved aeration, no PE. IMPRESSION: 1. Acute on chronic exacerbation of congestive heart failure. 2. Severe aortic stenosis. 3. Severe mitral regurgitation. 4. Bilateral pleural effusions. 5. Acute respiratory failure, requiring oxygen. 6. Initial visit. EMERGENCY DEPARTMENT COURSE: The patient brought back to the examination room. Seen and evaluated by myself. IV is established. Laboratory analysis and imaging are obtained as described above. The patient is given 60 mg of Lasix IV. She does appear in no acute respiratory distress. We have attempted to wean the patient off oxygen. She does drop down to 86-87%. I have discussed the case with . PATIENT'S NAME: IZABEL PINTO [facility] AGE: 77 Y [address] ROOM: [place] [address] LOCATION: [facility] ADMIT DATE: 02/15/2017 ER/Outpatient Report DISCHARGE DATE: 02/15/2017 FAMILY PHYSICIAN: Richard Garcia MD ATTENDING PHYSICIAN: Richard Nichols who recently discharged the patient 4 days ago. He has recommended a palliative Care consult. We have contacted palliative Care. They have seen and evaluated the patient. They have discussed the case with the patient's daughter and the patient will be placed on hospice care. Oxygen has been arranged for the patient at the longterm. Once again, she does have no acute respiratory distress at this time. The rest of the laboratory analysis is unremarkable. I have asked that she follows up with primary care doctor, Dr. Garcia in 2 days. I have discussed return to care instructions including worsening symptoms or any other concerns to return to the emergency department as soon as possible. DISPOSITION: The patient discharged back to [facility] under the care of Hospice in stable condition. DO JOSE RAMON GARCÍA/modl /[id number] d: 02/15/171829 t: 02/16/17803, OUTPATIENT REPORT
--- NOTE | ~2017-02-15 | CON ---
[facility] 77 Y [address] ROOM: [place] [address] LOCATION: [facility] ADMIT DATE: 02/15/2017 Consultation DISCHARGE DATE: 02/15/2017 FAMILY PHYSICIAN: Richard Garcia MD ATTENDING PHYSICIAN: Richard Nichols DATE OF CONSULTATION: 02/15/2017 REFERRING PHYSICIAN: Fransisco Hanna MD LOCATION: Emergency room. CHIEF COMPLAINT: Palliative care referral for goals of care conversation. HISTORY OF PRESENT ILLNESS: The patient is a 77-year-old female resident of [facility] who is known to palliative care from previous admission for acute on chronic congestive heart failure. This is the patient's third ER visit in the last approximately a month, related to acute diastolic decompensated heart failure. She was recently hospitalized from January 19 through the as well as February 07 through the . Both times she was discharged back to [facility]. The patient reports that she does frequently wake up in the middle of the night with shortness of breath but this morning, she woke up in the morning and felt very short of breath and was brought into the ER. She has a history of severe aortic stenosis as well as severe mitral stenosis and follows with Dr. Norbert Cool for this. She also has a history of dementia as well as recent hospitalizations this year for a hip fracture and a GI bleed. Given her recurrent admissions and ER visits, Palliative Care has been consulted to assist with goals of care conversation. PAST SURGICAL HISTORY: Previous Operations: 1. Left hip repair in August 2016. 2. Cholecystectomy. 3. Right heart catheterization. 4. Right knee surgery. PAST MEDICAL HISTORY: 1. Chronic diastolic heart failure. 2. Diabetes mellitus, type 2. 3. Dementia. 4. Hypothyroidism. 5. COPD. 6. Depression. [facility] 77 Y [address] ROOM: [place] [address] LOCATION: [facility] ADMIT DATE: 02/15/2017 Consultation DISCHARGE DATE: 02/15/2017 FAMILY PHYSICIAN: Richard Garcia MD ATTENDING PHYSICIAN: Richard Nichols 7. GERD. 8. History of duodenitis. 9. Paroxysmal atrial fibrillation. MEDICATIONS: Home medication list reviewed. Please see chart. ALLERGIES: TO LABETALOL. SOCIAL HISTORY: The patient is a resident of the [facility]. No history of tobacco or alcohol use. Her daughter Ernestine is her power of securities attorney. FAMILY HISTORY: Her parents had a history of heart failure, diabetes, and coronary artery disease. REVIEW OF SYSTEMS: GENERAL: The patient reports, has a fairly good appetite. She is not aware of any changes in her weight. Denies any recent fever, chills, or night sweats. Denies fatigue. HEENT: No changes in vision or hearing. No headaches. No sinus congestion. RESPIRATORY: At the current point denies any shortness of breath but does report that she wakes up quite frequently in the night with shortness of breath. Denies cough. CARDIOVASCULAR: Does report occasional palpitations. This is not associated with any dizziness or syncope or chest pain. No peripheral edema. GASTROINTESTINAL: No nausea, vomiting, diarrhea, or constipation. No difficulty chewing or swallowing. No blood in her stools. GENITOURINARY: She does have incontinency and wears Depend's. MUSCULOSKELETAL: No joint swelling or joint pain. Does complain of some musculoskeletal pain in her left arm. Denies any recent falls but does have a history of recurrent falls. Does ambulate with a walker. NEUROLOGICAL: Denies numbness or tingling. No dizziness, syncope, or seizures. INTEGUMENTARY: No rashes or open areas. HEMATOLOGIC: No new bruising or bleeding. PSYCHIATRIC: Denies feeling depressed or anxious. No hallucinations. Denies insomnia. PHYSICAL EXAMINATION: VITAL SIGNS: Respiratory rate is 12-16, heart rate is in the 80s, blood pressure is in the 150, systolically. She is afebrile. GENERAL: Reveals an alert, elderly white female. She is oriented to the fact PATIENT'S NAME: IZABEL PINTO [facility] AGE: 77 Y [address] ROOM: [place], [place] [id number] LOCATION: ED ADMIT DATE: 02/15/2017 Consultation DISCHARGE DATE: 02/15/2017 FAMILY PHYSICIAN: Richard Garcia MD ATTENDING PHYSICIAN: Richard Nichols that she is at [facility]. She is not able to tell me the month, but knows it is 2016. She is lying on the couch, does not appear to be in any acute distress. HEENT: Normocephalic, atraumatic. Pupils are equal, round, and reactive to light. Sclerae anicteric. Conjunctivae pink. Tongue and mucous membranes are moist and pink. CARDIOVASCULAR: Heart tones are regular rate and rhythm. Positive for a murmur. RESPIRATORY: Respirations are regular and nonlabored. Lung sounds are clear to auscultation bilaterally. No rales, rhonchi, or wheezes. GASTROINTESTINAL: Abdomen is soft, nontender. Bowel sounds are present. MUSCULOSKELETAL: No significant joint deformities. Peripheral pulses are 1+ bilaterally with no clubbing, cyanosis, or edema. SKIN: Warm and dry. No unusual lesions or rashes. NEUROLOGICAL: Grossly intact. IMPRESSION AND PLAN: 1. Dementia. 2. Recurrent episodes of shortness of breath. I would recommend having oxygen possibly at night or at least available p.r.n. at the assisted living facility for when these episodes do happen. Also may consider a low-dose Roxanol as well as a hospital bed to keep her head elevated at night, to see if this gives her a little bit better control of her shortness of breath. 3. Code status. The patient is a DNR/DNI. Her power of securities attorney is Ernestine, her daughter. Discussed with the patient that when I visited with her 2 hospital stays ago, she was not quite ready for hospice though she did understand what hospice was all about. Once again I discussed this with her and she feels at this time, maybe it is time to give it a shot. Discussed with her Medicare Hospice Benefit which would include getting her hospital bed and oxygen to help with some of her symptoms as well as a nurse who would be able to come out and help when she is having this shortness of breath. Given the patient's agreement, I did also place a phone call to the patient's daughter Ernestine and explained the current situation and at this point, I feel as though it is time to involve Hospice. Ernestine is agreeable to involving Hospice Services. As we discussed the patient's recurrent ER visits and hospital admissions, and that likely this is going to be recurrent thing that is happening more frequently. At this point Ernestine is agreeable to hospice philosophy and services. I did make multiple phone calls, coordinating care with [facility], ER staff and the patient's primary care provider. Arrangements were made for the patient to be transferred back to [facility], at which point, [facility] will evaluate and admit under their services. I did complete the comfort care order set for [facility] and also called her PATIENT'S NAME: IZABEL PINTO [facility] AGE: 77 Y [address] ROOM: [place] [address] LOCATION: [facility] ADMIT DATE: 02/15/2017 Consultation DISCHARGE DATE: 02/15/2017 FAMILY PHYSICIAN: Richard Garcia MD ATTENDING PHYSICIAN: Richard Nichols primary care provider, Dr. Lama and he is also in agreement to initiating hospice services at this time. 65 minutes was spent total, greater than 50% of this time was spent providing education and counseling to the family on hospice services, and coordinating care between various services and providers. Thank you for allowing me to assist this patient and family. RUSS FINCH, JENNIFER FOR MD DARLENE JOE/modl /[id number] CC: MD Richard Echeverria DO d: 02/16/17 1626 t: 02/20/17 1431, CONSULTATION REPORT
[2017-02-15 08:24] LABS: BICARBONATE 28.5 mmol/L (18.0-23.0); LACTATE 1.2 mEq/L (0.50-1.60); PCO2 45 mmHg (35-45); PO2 95 mmHg (80-90)
[2017-02-15 08:26] LABS: BASOPHIL # 0.1 K/uL (0.0-0.2); BASOPHIL % 0.6 %; EOSINOPHIL # 0.2 K/uL (0.0-0.5); HEMATOCRIT 38.6 % (33.0-46.0); HEMOGLOBIN 12.8 g/dL (10.0-15.0); IMMATURE GRANULOCYTE # 0.1 K/uL (0.0-0.3); IMMATURE GRANULOCYTE % 0.4 %; LYMPHOCYTE # 0.9 K/uL (0.8-4.0); LYMPHOCYTE % 8.1 %; MCH 28.3 pg (27.0-34.0); MCHC 33.2 gm/dL (32.0-36.5); MCV 85.4 fl (83.0-98.0); MONOCYTE # 0.5 K/uL (0.0-1.0); MONOCYTE % 4.4 %; MPV 11.1 fl (9.4-12.4); NEUTROPHIL # (ANC) 9.5 K/uL (1.8-7.8); NEUTROPHIL % 84.5 %; NRBC % 0 /100WBC (0-0.00); PLATELET COUNT 287 K/uL (150-450); RBC 4.52 M/uL (3.50-5.50); RDW-CV 13.9 % (11.9-14.6); WBC 11.2 K/uL (4.0-11.0)
[2017-02-15 08:45] LABS: INR - (THERAPEUTIC) 0.99 (0.92-1.07); PROTIME 10.4 SECONDS (9.8-11.4); PTT 27 SECONDS (25-32)
[2017-02-15 09:02] LABS: ALBUMIN 3.5 gm/dL (3.5-5.0); ALK PHOS 80 IU/L (33-138); ALT 19 IU/L (12-78); ANION GAP 13.4 (10.0-19.0); AST 22 IU/L (10-40); BLOOD UREA NITROGEN 13 mg/dL (6-24); CHLORIDE 107 mMol/L (96-110); CO2 26 mMol/L (22-32); CPK 46 IU/L (21-215); CREATININE 0.8 mg/dL (0.5-1.1); MAGNESIUM 1.7 mg/dL (1.8-2.6); POTASSIUM 3.4 mMol/L (3.7-5.1); SODIUM 143 mMol/L (135-145); TOTAL PROTEIN 6.9 g/dL (6.0-8.4)
[2017-02-15 09:09] LABS: TOTAL BILIRUBIN 0.5 mg/dL (0.0-1.5)
[2017-02-15 10:47] LABS: CPK 39 IU/L (21-215)
== END 2017-02-15 14:11 | disposition disaster alternative care site (69) ==
LOC: GMED 07:49
PROVIDERS: Emergency Medicine
DX: I11.0 Hypertensive heart disease with heart failure (principal); I50.9 Heart failure, unspecified; I48.91 Unspecified atrial fibrillation; J44.9 Chronic obstructive pulmonary disease, unspecified; M19.90 Unspecified osteoarthritis, unspecified site; J90 Pleural effusion, not elsewhere classified; E03.9 Hypothyroidism, unspecified; I34.0 Nonrheumatic mitral (valve) insufficiency; I35.0 Nonrheumatic aortic (valve) stenosis; Z90.49 Acquired absence of other specified parts of digestive tract; Z79.899 Other long term (current) drug therapy; Z87.891 Personal history of nicotine dependence; Z88.8 Allergy status to other drugs, medicaments and biological substances; Z79.82 Long term (current) use of aspirin; Z79.01 Long term (current) use of anticoagulants
CPT/HCPCS: J1940; Q9967

== ENCOUNTER → 2017-02-15 | Outpatient (CLI) | payer MEDICARE, OTHER ==
[~2017-02-15] MED LIST changes: +LASIX20 MG PO; +PRINIVIL5 MG PO
== END | disposition disaster alternative care site (69) ==
LOC: GAMB 13:45
DX: R06.02 Shortness of breath (principal); I50.9 Heart failure, unspecified; J44.9 Chronic obstructive pulmonary disease, unspecified; F03.90 Unspecified dementia, unspecified severity, without behavioral disturbance, psychotic disturbance, mood disturbance, and anxiety; Z79.82 Long term (current) use of aspirin; Z79.52 Long term (current) use of systemic steroids; Z79.899 Other long term (current) drug therapy; Z88.8 Allergy status to other drugs, medicaments and biological substances
CPT/HCPCS: A0425; A0428

== ENCOUNTER → 2017-02-15 | Outpatient (CLI) | payer MEDICARE, OTHER | END | disposition disaster alternative care site (69) | LOC: GAMB 07:21 | DX: R06.9 Unspecified abnormalities of breathing (principal); R06.2 Wheezing | CPT/HCPCS: A0422; A0425; A0427; J2930 ==

== ENCOUNTER → 2017-02-27 | Outpatient (CLI) | payer MEDICARE, OTHER | END | disposition disaster alternative care site (69) | LOC: GAMB 05:42 | DX: R06.02 Shortness of breath (principal); Z79.891 Long term (current) use of opiate analgesic | CPT/HCPCS: A0422; A0425; A0429 ==